=== PATIENT | female | born 1955 | race Hispanic/Latino ===

== ENCOUNTER 2017-09-01 12:04 | Emergency (ER) | payer MEDICAID ==
[2017-09-01] MEDS ORDERED: DIPRIVAN 10 MG/ML IV ONE (12:31)
[2017-09-01] MEDS ORDERED: DILAUDID ONE (12:32)
[2017-09-01] MEDS ORDERED: XYLOCAINE MPF 2% ONE (12:32)
[2017-09-01 12:46] VITALS: BP 136/51
== END 2017-09-01 15:10 | disposition left against medical advice (07) ==
LOC: ED 12:04
DX: J11.1 Influenza due to unidentified influenza virus with other respiratory manifestations (principal); Z53.21 Procedure and treatment not carried out due to patient leaving prior to being seen by health care provider
CPT/HCPCS: 82962; J1170; J2704

== ENCOUNTER 2017-09-09 17:25 | Inpatient (IN) | payer MEDICAID ==
[2017-09-09 19:04] LABS: Basophils % (Auto) 0.1 % (0.0-1.8); Hemoglobin 13.6 gm/dl (10.1-14.3); Lymphocytes # (Auto) 0.8 K/mm3 (1.2-5.4); Lymphocytes % (Auto) 5.1 % (13.4-35.0); Mean Corpuscular HGB Conc 33 % (30-34); Mean Corpuscular Hemoglobin 29 pg (28-32); Mean Corpuscular Volume 88 fl (79-97); Monocytes # (Auto) 1.3 K/mm3 (0.0-0.8); Monocytes % (Auto) 8.5 % (0.0-7.3); Platelet Count 311 K/mm3 (140-440); Red Blood Count 4.67 M/mm3 (3.65-5.03); Red Cell Distribution Width 14.3 % (13.2-15.2)
[2017-09-09 19:16] LABS: BUN/Creatinine Ratio 27; Blood Urea Nitrogen 32 mg/dL (7-17); Calcium 8.7 mg/dL (8.4-10.2); Hemolysis Index 8
--- NOTE | 2017-09-09 19:45 | XRay Report ---
FINAL REPORT EXAM: XR CHEST ROUTINE 2V HISTORY: Shortness of breath TECHNIQUE: PA and lateral views of the chest PRIORS: None. FINDINGS: Lines, tubes, and devices: N/A Lungs and pleura: Trachea is normal in position. 2 vague adjacent 1 cm nodular densities in the left base are noted between the posterior 9th and 10th ribs. CT is recommended. Otherwise, lungs are clear of infiltrate, pleural effusion, vascular congestion, or pneumothorax. Cardiomediastinal silhouette: Cardiac and mediastinal silhouettes are unremarkable. Other: Bony structures are intact. IMPRESSION: No acute cardiopulmonary process seen. Nodular densities in the left base. CT is recommended.
[2017-09-09] MEDS ORDERED: XOPENEX IH ONE (20:53)
[2017-09-09] MEDS ORDERED: ATROVENT IH ONE (20:53)
--- NOTE | 2017-09-09 20:58 | Emergency Department Report ---
ED Shortness of Breath HPI - General Chief Complaint: Dyspnea/Respdistress Stated Complaint: FLU LIKE SYMPTOMS Time Seen by Provider: 09/09/17 20:46 Source: patient, EMS Mode of arrival: Ambulatory Limitations: No Limitations - History of Present Illness Initial Comments: Patient is 62 years old female history of asthma, congestive heart failure, diabetes and arthritis presented to the ER with 2 weeks history of cough, productive with greenish sputum, shortness of breath and low oxygen saturation. Patient denied any nausea or vomiting or diarrhea. No chest pain. Patient denied any fever recently. MD Complaint: shortness of breath, cough -: week(s) Severity: moderate - Related Data Home Medications Medication Instructions Recorded Confirmed Last Taken Escitalopram Oxalate [Lexapro] 20 mg PO QDAY 07/21/13 03/23/15 Unknown Furosemide [Lasix] 40 mg PO DAILY 07/21/13 03/23/15 Unknown Gabapentin [Neurontin] 400 mg PO Q8H 07/21/13 03/23/15 Unknown Insulin Aspart [NovoLOG 100 50 units SQ TID 07/21/13 03/23/15 Unknown UNITS/ML VIAL] Levothyroxine [Synthroid] 125 mcg PO QAM 07/21/13 03/23/15 Unknown Lisinopril [Zestril TAB] 10 mg PO QDAY 07/21/13 03/23/15 Unknown Loratadine [Claritin] 10 mg PO DAILY 07/21/13 03/23/15 Unknown Metoprolol [Lopressor TAB] 75 mg PO DAILY 07/21/13 03/23/15 Unknown metFORMIN [Glucophage] 500 mg PO BID 07/21/13 03/23/15 Unknown Latanoprost 0.005% [Xalatan 0.005%] 1 drop OU QHS 07/22/13 03/23/15 07/20/13 23: 00 1 drop each eye Previous Rx's Medication Instructions Recorded Last Taken Type Insulin Glargine,Hum.rec.anlog 60 units SQ HS #10 ml 07/26/13 Unknown Rx [Lantus Solostar] Allergies Allergy/AdvReac Type Severity Reaction Status Date / Time imipramine HCl Allergy Unknown Verified 09/01/17 12:43 [From Tofranil] Penicillins Allergy Vomiting Verified 09/01/17 12:43 ED Review of Systems ROS: Stated complaint: FLU LIKE SYMPTOMS Other details as noted in HPI Comment: All other systems reviewed and negative Constitutional: denies: chills, fever Respiratory: cough, shortness of breath, SOB with exertion, wheezing Gastrointestinal: denies: abdominal pain, nausea, vomiting, diarrhea Neurological: denies: headache, weakness, numbness, paresthesias ED Past Medical Hx - Past Medical History Previous Medical History?: Yes Hx Hypertension: Yes Hx Congestive Heart Failure: Yes Hx Diabetes: Yes Hx GERD: Yes Hx Renal Disease: Yes Hx Arthritis: Yes Hx Asthma: Yes Hx COPD: No Hx HIV: No Additional medical history: neuropathy MRSA. high cholesterol. fibromyalgia. glaucoma. thyroid - Surgical History Past Surgical History?: Yes Additional Surgical History: parotid gland removed - Social History Smoking Status: Never Smoker Substance Use Type: Prescribed - Medications Home Medications: Home Medications Medication Instructions Recorded Confirmed Last Taken Type Escitalopram Oxalate [Lexapro] 20 mg PO QDAY 07/21/13 03/23/15 Unknown History Furosemide [Lasix] 40 mg PO DAILY 07/21/13 03/23/15 Unknown History Gabapentin [Neurontin] 400 mg PO Q8H 07/21/13 03/23/15 Unknown History Insulin Aspart [NovoLOG 100 50 units SQ TID 07/21/13 03/23/15 Unknown History UNITS/ML VIAL] Levothyroxine [Synthroid] 125 mcg PO QAM 07/21/13 03/23/15 Unknown History Lisinopril [Zestril TAB] 10 mg PO QDAY 07/21/13 03/23/15 Unknown History Loratadine [Claritin] 10 mg PO DAILY 07/21/13 03/23/15 Unknown History Metoprolol [Lopressor TAB] 75 mg PO DAILY 07/21/13 03/23/15 Unknown History metFORMIN [Glucophage] 500 mg PO BID 07/21/13 03/23/15 Unknown History Latanoprost 0.005% [Xalatan 0.005%] 1 drop OU QHS 07/22/13 03/23/15 07/20/13 23: 00 History 1 drop each eye Insulin Glargine,Hum.rec.anlog 60 units SQ HS #10 ml 07/26/13 03/23/15 Unknown Rx [Lantus Solostar] ED Physical Exam - General Limitations: No Limitations General appearance: alert, in distress (respiratory distress ) - Head Head exam: Present: atraumatic, normocephalic, normal inspection - Eye Eye exam: Present: normal appearance, PERRL - ENT ENT exam: Present: normal exam, normal orophraynx, mucous membranes moist - Neck Neck exam: Present: normal inspection, full ROM. Absent: tenderness, meningismus, lymphadenopathy - Respiratory Respiratory exam: Present: respiratory distress, wheezes, rhonchi, accessory muscle use, decreased breath sounds, prolonged expiratory. Absent: chest wall tenderness - Cardiovascular Cardiovascular Exam: Present: tachycardia - GI/Abdominal GI/Abdominal exam: Present: soft, normal bowel sounds. Absent: distended, tenderness, guarding, rebound, rigid, organomegaly, mass, bruit, pulsatile mass , hernia - Extremities Exam Extremities exam: Present: normal inspection, full ROM, normal capillary refill. Absent: pedal edema, calf tenderness - Back Exam Back exam: Present: normal inspection, full ROM. Absent: CVA tenderness (R), CVA tenderness (L), muscle spasm, paraspinal tenderness, vertebral tenderness - Neurological Exam Neurological exam: Present: alert, oriented X3, CN II-XII intact, normal gait - Skin Skin exam: Present: warm, intact, normal color. Absent: cyanosis ED Course Vital Signs 09/09/17 09/09/17 09/09/17 17:52 20:29 20:30 Temperature 98 F Pulse Rate 100 H Pulse Rate [ Anterior Bilateral Throughout] Respiratory 20 Rate Respiratory Rate [Anterior Bilateral Throughout] Blood Pressure 165/67 112/66 112/66 O2 Sat by Pulse 91 Oximetry 09/09/17 09/09/17 09/09/17 20:44 21:49 22:04 Temperature Pulse Rate Pulse Rate [ 104 H 114 H Anterior Bilateral Throughout] Respiratory 16 Rate Respiratory 15 20 Rate [Anterior Bilateral Throughout] Blood Pressure O2 Sat by Pulse 98 Oximetry 09/09/17 22:19 Temperature 98.4 F Pulse Rate Pulse Rate [ Anterior Bilateral Throughout] Respiratory Rate Respiratory Rate [Anterior Bilateral Throughout] Blood Pressure O2 Sat by Pulse Oximetry ED Medical Decision Making - Lab Data Result diagrams: 09/09/17 18:34 09/09/17 18:34 - EKG Data -: EKG Interpreted by Md EKG shows normal: sinus rhythm Rate: tachycardia - EKG Data Interpretation: no acute changes - Radiology Data Radiology results: report reviewed Referring Physician: ED DOC Patient Name: MIRTA JIMENEZ Date of : 1955 Sex: Female Report Date: 2017-09-09 Report Status: Finalized Findings [facility] [address] [place] [address] XRay Report Signed Patient: MIRTA JIMENEZ MR#: [id number] : 1955 Acct:[id number] Age/Sex: 62 / F ADM Date: 09/09/17 Loc: ED Attending Dr: Ordering Physician: PAOLA HARDING MD Date of Service: 09/09/17 Procedure(s): XR chest routine 2V Accession Number(s): [id number] cc: PAOLA HARDING MD Fluoro Time In Minutes: FINAL REPORT EXAM: XR CHEST ROUTINE 2V HISTORY: Shortness of breath TECHNIQUE: PA and lateral views of the chest PRIORS: None. FINDINGS: Lines, tubes, and devices: N/A Lungs and pleura: Trachea is normal in position. 2 vague adjacent 1 cm nodular densities in the left base are noted between the posterior 9th and 10th ribs. CT is recommended. Otherwise, lungs are clear of infiltrate, pleural effusion, vascular congestion, or pneumothorax. Cardiomediastinal silhouette: Cardiac and mediastinal silhouettes are unremarkable. Other: Bony structures are intact. IMPRESSION: No acute cardiopulmonary process seen. Nodular densities in the left base. CT is recommended. Transcribed By: [facility] Dictated By: ADRIEN DC MD Electronically Authenticated By: ADRIEN DC MD Signed Date/Time: 09/09/17 154 DD/ 1543 TD/TT: 09/09/17 154 - Medical Decision Making Discussed with Dr. Fe Cazares, I presented the patient to her, she agreed to admit the patient to our service.. Critical Care Time: Yes Critical care time in (mins) excluding proc time.: 30 Critical care attestation.: If time is entered above; I have spent that time in minutes in the direct care of this critically ill patient, excluding procedure time. ED Disposition Clinical Impression: CHF (congestive heart failure), Acute and chronic respiratory failure with hypoxia, Hyperglycemia due to type 2 diabetes mellitus Disposition: OP ADMIT IP TO THIS HOSP Is pt being admited?: Yes Condition: Stable Instructions: Diabetes Mellitus Type 2 in Adults (ED) Referrals: TAPAN GUZMAN MD [Primary Care Provider] - 3-5 Days
[2017-09-09] MEDS ORDERED: NACL 0.9% 1000 ML 1,000 ML IV ONE (22:28)
[2017-09-09] MEDS ORDERED: DULCOLAX PR PRN (23:20)
[2017-09-09] MEDS ORDERED: ZOFRAN IV PRN (23:20)
[2017-09-09] MEDS ORDERED: D50W (25GM) Syringe IV PRN (23:20)
[2017-09-09] MEDS ORDERED: TYLENOL PO PRN (23:20)
[2017-09-09] MEDS ORDERED: MILK OF MAGNESIA PO PRN (23:20)
--- NOTE | 2017-09-09 23:23 | History and Physical Report ---
History of Present Illness Date of examination: 09/09/17 History of present illness: 59-year-old woman with multiple medical problems including hypertension, diabetes, fibromyalgia, hyperlipidemia, hypothyroidism, CHF, depression , asthma comes to the emergency room with complaints of shortness of breath, cough productive of thick cerrato sputum, subjective fever and chills. These symptoms have been ongoing over the last 2 weeks but got worse today Review Of Systems: Constitutional: no weight loss Ears, eyes, nose, mouth and throat: no nasal congestion, no nasal discharge, no sinus pressure, blurry vision, diplopia Neck: No neck pain or rigidity. Cardiovascular: No chest pain, palpitations Respiratory: +shortness of breath, cough Gastrointestinal: No abdominal pain, hematochezia Genitourinary : no dysuria, frequency , hematuria Musculoskeletal: no muscle ache Integumentary: no rash, no pruritis Neurological: no parathesias, focal weakness Endocrine: no cold or heat intolerance, no polyuria or polydipsia Hematologic/Lymphatic: no easy bruising, no easy bleeding, no gland swelling Allergic/Immunologic: no urticaria, no angioedema. PAST SURGICAL HISTORY: Ex-lap, parotid gland surgery SOCIAL HISTORY: Denies alcohol, tobacco, drugs FAMILY HISTORY: Hypertension Medications and Allergies Allergies Allergy/AdvReac Type Severity Reaction Status Date / Time imipramine HCl Allergy Unknown Verified 09/01/17 12:43 [From Tofranil] Penicillins Allergy Vomiting Verified 09/01/17 12:43 Home Medications Medication Instructions Recorded Confirmed Last Taken Type Escitalopram Oxalate [Lexapro] 20 mg PO QDAY 07/21/13 03/23/15 Unknown History Furosemide [Lasix] 40 mg PO DAILY 07/21/13 03/23/15 Unknown History Gabapentin [Neurontin] 400 mg PO Q8H 07/21/13 03/23/15 Unknown History Insulin Aspart [NovoLOG 100 50 units SQ TID 07/21/13 03/23/15 Unknown History UNITS/ML VIAL] Levothyroxine [Synthroid] 125 mcg PO QAM 07/21/13 03/23/15 Unknown History Lisinopril [Zestril TAB] 10 mg PO QDAY 07/21/13 03/23/15 Unknown History Loratadine [Claritin] 10 mg PO DAILY 07/21/13 03/23/15 Unknown History Metoprolol [Lopressor TAB] 75 mg PO DAILY 07/21/13 03/23/15 Unknown History metFORMIN [Glucophage] 500 mg PO BID 07/21/13 03/23/15 Unknown History Latanoprost 0.005% [Xalatan 0.005%] 1 drop OU QHS 07/22/13 03/23/15 07/20/13 23: 00 History 1 drop each eye Insulin Glargine,Hum.rec.anlog 60 units SQ HS #10 ml 07/26/13 03/23/15 Unknown Rx [Lantus Solostar] Active Meds: Active Medications Sodium Chloride (Nacl 0.9% 1000 Ml) 1,000 mls @ 999 mls/hr IV BOLUS ONE Stop: 09/09/17 23:28 Exam - Physical Exam Narrative exam: General Apperance: The patient sitting in bed no acute distress HEENT: Normocephalic, atraumatic. Pupils equally round and reactive to light, extraocular movement intact, and no sclericterus or JVD or thyromegaly or nodule. Neck supple, no carotid bruit, mucous membranes dry, no exudate or erythema Heart: S1-S2, regular is rhythm Lungs: Wheezes bilaterally, breathing comfortable Abdomen: Positive bowel sounds, soft, nontender, nondistended, no organomegaly Extremities: No edema cyanosis clubbing Skin: no rash, nodule, warm and dry Neuro: Cranial nerves II through XII intact, speech is fluent, motor intact , sensation intact - Constitutional Vitals: Temp Pulse Resp BP Pulse Ox 98.4 F 114 H 20 112/66 98 09/09/17 22:19 09/09/17 22:04 09/09/17 22:04 09/09/17 20:30 09/09/17 20:44 Results - Labs CBC & Chem 7: 09/09/17 18:34 09/09/17 18:34 Labs: Abnormal lab results 09/09/17 09/09/17 09/09/17 Range/Units 18:34 18:34 21:18 WBC 15.9 H (4.5-11.0) K/mm3 Lymph % (Auto) 5.1 L (13.4-35.0) % [place] % (Auto) 8.5 H (0.0-7.3) % Lymph # 0.8 L (1.2-5.4) K/mm3 [place] # 1.3 H (0.0-0.8) K/mm3 Seg Neutrophils % 86.3 H (40.0-70.0) % Seg Neutrophils # 13.7 H (1.8-7.7) K/mm3 Sodium 130 L (137-145) mmol/L Chloride 85.2 L (98-107) mmol/L Carbon Dioxide 21 L (22-30) mmol/L BUN 32 H (7-17) mg/dL Glucose 474 H (65-100) mg/dL POC Glucose (70-105) Lactic Acid 2.30 H* (0.7-2.0) mmol/L 09/09/17 Range/Units 21:38 WBC (4.5-11.0) K/mm3 Lymph % (Auto) (13.4-35.0) % [place] % (Auto) (0.0-7.3) % Lymph # (1.2-5.4) K/mm3 [place] # (0.0-0.8) K/mm3 Seg Neutrophils % (40.0-70.0) % Seg Neutrophils # (1.8-7.7) K/mm3 Sodium (137-145) mmol/L Chloride (98-107) mmol/L Carbon Dioxide (22-30) mmol/L BUN (7-17) mg/dL Glucose (65-100) mg/dL POC Glucose > 500 H (70-105) Lactic Acid (0.7-2.0) mmol/L - Imaging and Cardiology EKG: image reviewed Chest x-ray: image reviewed Assessment and Plan Assessment Asthma exacerbation with acute bronchitis Lung nodules Diabetes type 2 uncontrolled Hypertension Hyperlipidemia Hypothyroidism Fibromyalgia CHF, stable Depression Plan Admit to medicine Start high-dose steroids, neb treatment, IV antibiotic obtain CAT scan of the chest Check fingersticks initiate insulin sliding scale Dvt prophylaxis
[2017-09-10] MEDS ORDERED: APRESOLINE IV PRN (00:29)
--- NOTE | 2017-09-10 00:36 | Cat Scan Report ---
FINAL REPORT EXAM: CT CHEST WO CON HISTORY: ab cxr SOB COUGH TECHNIQUE: Routine axial imaging was obtained of the thorax without IV contrast with sagittal and coronal reconstructions. Correlation is made to the chest x-ray of 09/09/2017. FINDINGS: The lungs reveal nodular infiltrates in both lower lobes, left side worse than right side. There additional peripheral infiltrates noted also in the right middle lobe and right upper lobe. There is diffuse interstitial prominence in both lungs. Pleural fluid is not seen. The heart size is normal. The thoracic aorta is normal in caliber. There is no evidence of pathologically enlarged lymph nodes in the mediastinum or jeremiah. In the upper abdomen the adrenal glands appear normal. At the thoracic inlet the thyroid gland is unremarkable. The skeletal structures reveal multilevel disc degeneration in the thoracic spine IMPRESSION: Patchy bilateral nodular infiltrates in both lower lobes as described with additional peripheral traits in the right middle lobe and right upper lobe compatible with pneumonia. Diffuse interstitial prominence in both lungs. How much of this is related to chronic changes versus the possibility of mild interstitial edema is uncertain.
[2017-09-10] MEDS ORDERED: LEVEMIR SUB-Q SCH (01:00)
[2017-09-10] MEDS: DUONEB *Not for PRN Use IH SCH ×4 (02:23→20:17)
[2017-09-10] MEDS: LEVAQUIN 750MG/150ML 750 MG/150 ML BAG IV SCH ×2 (03:18→11:05)
[2017-09-10] MEDS: NEURONTIN PO SCH ×3 (03:23→22:13)
[2017-09-10 04:43] LABS: Basophils % (Auto) 0.3 % (0.0-1.8); Hematocrit 35.3 % (30.3-42.9); Hemoglobin 11.7 gm/dl (10.1-14.3); Lymphocytes # (Auto) 0.9 K/mm3 (1.2-5.4); Lymphocytes % (Auto) 7.3 % (13.4-35.0); Mean Corpuscular HGB Conc 33 % (30-34); Mean Corpuscular Hemoglobin 29 pg (28-32); Mean Corpuscular Volume 87 fl (79-97); Monocytes # (Auto) 1.7 K/mm3 (0.0-0.8); Monocytes % (Auto) 13.3 % (0.0-7.3); Platelet Count 290 K/mm3 (140-440); Red Blood Count 4.07 M/mm3 (3.65-5.03)
[2017-09-10 05:01] LABS: Calcium 8.7 mg/dL (8.4-10.2)
[2017-09-10] MEDS: SYNTHROID PO SCH (05:58)
[2017-09-10] MEDS: NOVOLOG SUB-Q SCH ×4 (08:35→19:29)
[2017-09-10] MEDS: LEXAPRO PO SCH (09:56)
[2017-09-10] MEDS: GLUCOPHAGE PO SCH ×2 (09:56→18:41)
[2017-09-10] MEDS: ZESTRIL PO SCH (09:58)
[2017-09-10] MEDS: LASIX PO SCH (09:58)
[2017-09-10] MEDS: LOVENOX SUB-Q SCH (09:59)
[2017-09-10] MEDS ORDERED: D50W (25GM) Syringe IV PRN (11:40)
[2017-09-10 12:21] LABS: Magnesium 2.1 mg/dL (1.7-2.3)
[2017-09-10] MEDS ORDERED: LEVEMIR SUB-Q ONE (12:35)
--- NOTE | 2017-09-10 12:45 | Consultation ---
History of Present Illness - Reason for Consult Consult date: 09/10/17 [facility] Requesting physician: AUGUST ELMUS - History of Present Illness 62 y/o female, admitted with shortness of breath, subjective fevers and chills and cough productive of sputum. Treated as asthma exacerbation, started on high dose steroids and abx therapy. 1 liters bolus given in ED appears. IMS found patient in DKA and looking to transfer to ICU. Currently no ICU beds available. Medications and Allergies Allergies Allergy/AdvReac Type Severity Reaction Status Date / Time imipramine HCl Allergy Unknown Verified 09/01/17 12:43 [From Tofranil] Penicillins Allergy Vomiting Verified 09/01/17 12:43 Home Medications Medication Instructions Recorded Confirmed Last Taken Type Escitalopram Oxalate [Lexapro] 20 mg PO QDAY MDD 20 mg 07/21/13 09/10/17 History 20 mg Furosemide [Lasix] 40 mg PO DAILY MDD 40 mg 07/21/13 09/10/17 09/08/17 History 40 mg Gabapentin [Neurontin] 800 mg PO TID MDD 800 mg 07/21/13 09/10/17 09/08/17 History 800 mg Levothyroxine [Synthroid] 112 mcg PO QAM MDD 112 mcg 07/21/13 09/10/17 09/08/17 History 112 mcg Lisinopril [Zestril TAB] 10 mg PO QDAY MDD 10 mg 07/21/13 09/10/17 09/08/17 History 10 mg Loratadine [Claritin] 10 mg PO DAILY MDD 10 mg 07/21/13 09/10/17 09/08/17 History 10 mg Metoprolol [Lopressor TAB] 25 mg PO QDAY MDD 25 07/21/13 09/10/17 09/08/17 History 25 mg metFORMIN [Glucophage] 500 mg PO DAILY MDD 500 mg 07/21/13 09/10/17 09/08/17 History 500 mg Latanoprost 0.005% [Xalatan 0.005%] 1 drop OU QHS MDD 1 drop 07/22/13 09/10/17 09/08/17 History 1 drop AtorvaSTATin [Lipitor] 40 mg PO QHS MDD 40 mg 09/10/17 09/10/17 09/08/17 History 40 mg Bupropion HCl [Bupropion HCl Sr] 150 mg PO DAILY MDD 150 mg 09/10/17 09/10/17 History 150 mg Isosorbide Mononitrate 30 mg PO DAILY MDD 30 mg 09/10/17 09/10/17 09/08/17 History 30 mg traMADol [Ultram] 50 mg PO PRN PRN MDD 50 mg 09/10/17 09/10/17 09/08/17 History 50 mg Active Meds: Active Medications Acetaminophen (Tylenol) 650 mg PO Q4H PRN PRN Reason: Pain MILD(1-3)/Fever >100.5/ANN Albuterol/Ipratropium (Duoneb *Not For Prn Use*) 1 ampul IH Q6HRT [facility] Last Admin: 09/10/17 07:27 Dose: 1 ampul Bisacodyl (Dulcolax) 10 mg MD QDAY PRN PRN Reason: Constipation unrelieved by MOM Dextrose (D50w (25gm) Syringe) 0 ml IV PRN PRN PRN Reason: Hypoglycemia Enoxaparin Sodium (Lovenox) 40 mg SUB-Q QDAY [facility] Last Admin: 09/10/17 09:59 Dose: 40 mg Escitalopram Oxalate (Lexapro) 20 mg PO QDAY [facility] Last Admin: 09/10/17 09:56 Dose: 20 mg Furosemide (Lasix) 40 mg PO DAILY [facility] Last Admin: 09/10/17 09:58 Dose: 40 mg Gabapentin (Neurontin) 400 mg PO Q8HR [facility] Last Admin: 09/10/17 03:23 Dose: 400 mg Hydralazine HCl (Apresoline) 5 mg IV Q6H PRN PRN Reason: Hypertension Levofloxacin/Dextrose (Levaquin 750mg/150ml) 750 mg in 150 mls @ 100 mls/hr IV Q24HR [facility] PRN Reason: Protocol Last Admin: 09/10/17 11:05 Dose: 100 mls/hr Insulin Human Regular 100 (units/ Sodium Chloride) 100 mls @ 1 mls/hr IV TITR RUBA; 1 UNITS/HR PRN Reason: Protocol Sodium Chloride (Nacl 0.9% 1000 Ml) 1,000 mls @ 250 mls/hr IV DIRECT RUBA Levothyroxine Sodium (Synthroid) 125 mcg PO QAM@0600 [facility] Last Admin: 09/10/17 05:58 Dose: 125 mcg Lisinopril (Zestril) 10 mg PO QDAY [facility] Last Admin: 09/10/17 09:58 Dose: 10 mg Magnesium Hydroxide (Milk Of Magnesia) 30 ml PO Q4H PRN PRN Reason: Constipation Metformin HCl (Glucophage) 500 mg PO BIDDIAB [facility] Last Admin: 09/10/17 09:56 Dose: 500 mg Methylprednisolone Sodium Succinate (Solu-Medrol) 40 mg IV Q8HR [facility] Metoprolol Tartrate (Lopressor) 75 mg PO DAILY [facility] Ondansetron HCl (Zofran) 4 mg IV Q8H PRN PRN Reason: N/V unrelieved by Reglan Exam - Constitutional Vitals: Temp Pulse Resp BP Pulse Ox 97.5 F L 98 H 18 158/57 97 09/10/17 07:58 09/10/17 09:58 09/10/17 07:58 09/10/17 09:58 09/10/17 07:58 Results - Labs CBC & Chem 7: 09/10/17 03:53 09/10/17 11:42 Labs: Abnormal lab results 09/09/17 09/09/17 09/09/17 Range/Units 18:34 18:34 21:18 WBC 15.9 H (4.5-11.0) K/mm3 Lymph % (Auto) 5.1 L (13.4-35.0) % [place] % (Auto) 8.5 H (0.0-7.3) % Lymph # 0.8 L (1.2-5.4) K/mm3 [place] # 1.3 H (0.0-0.8) K/mm3 Seg Neutrophils % 86.3 H (40.0-70.0) % Seg Neutrophils # 13.7 H (1.8-7.7) K/mm3 Sodium 130 L (137-145) mmol/L Chloride 85.2 L (98-107) mmol/L Carbon Dioxide 21 L (22-30) mmol/L BUN 32 H (7-17) mg/dL Glucose 474 H (65-100) mg/dL POC Glucose (70-105) Lactic Acid 2.30 H* (0.7-2.0) mmol/L 09/09/17 09/10/17 09/10/17 Range/Units 21:38 03:53 03:53 WBC 12.7 H (4.5-11.0) K/mm3 Lymph % (Auto) 7.3 L (13.4-35.0) % [place] % (Auto) 13.3 H (0.0-7.3) % Lymph # 0.9 L (1.2-5.4) K/mm3 [place] # 1.7 H (0.0-0.8) K/mm3 Seg Neutrophils % 79.1 H (40.0-70.0) % Seg Neutrophils # 10.1 H (1.8-7.7) K/mm3 Sodium 129 L (137-145) mmol/L Chloride 85.5 L (98-107) mmol/L Carbon Dioxide 18 L (22-30) mmol/L BUN 35 H (7-17) mg/dL Glucose 479 H (65-100) mg/dL POC Glucose > 500 H (70-105) Lactic Acid (0.7-2.0) mmol/L 09/10/17 09/10/17 09/10/17 Range/Units 06:29 08:33 11:42 WBC (4.5-11.0) K/mm3 Lymph % (Auto) (13.4-35.0) % [place] % (Auto) (0.0-7.3) % Lymph # (1.2-5.4) K/mm3 [place] # (0.0-0.8) K/mm3 Seg Neutrophils % (40.0-70.0) % Seg Neutrophils # (1.8-7.7) K/mm3 Sodium 127 L (137-145) mmol/L Chloride 86.6 L (98-107) mmol/L Carbon Dioxide 21 L (22-30) mmol/L BUN 33 H (7-17) mg/dL Glucose (65-100) mg/dL POC Glucose 367 H (70-105) Lactic Acid 2.50 H* (0.7-2.0) mmol/L Assessment and Plan 62 y/o female with DKA 1. No current ICU beds so cannot start insulin drip. Will give liter of fluid and then reassess breathing status. 2. Levemir 10 units sub-q x1 now. 3. Continue high dose sliding scale 4. Will check q2 hour FSBS as this is the most the can do on the floor 5. Will check chemistry q6 hours 6. Situation is not ideal but we will have to make due until a bed is available. 7. Suggest Flu swab
[2017-09-10] MEDS: NACL 0.9% 1000 ML 1,000 ML IV SCH (12:58)
[2017-09-10 12:59] LABS: Calcium 8.1 mg/dL (8.4-10.2)
[2017-09-10 14:27] LABS: Calcium 8.3 mg/dL (8.4-10.2)
[2017-09-10] MEDS: LOPRESSOR PO SCH (15:00)
--- NOTE | 2017-09-10 15:45 | Progress Note ---
Assessment and Plan Assessment and plan: Acute asthma exacerbation - Patient is on IV Solu Medrol, nebulizer, oxygen support with Ventimask, IV antibiotics DKA - Blood sugar greater than 500, anion gap 30, patient shouldn't be admitted to the floor - I put transfer order to the ICU, but patient is still in the floor because there is no ICU bed - Patient was given IV fluid bolus, sliding scale insulin, Levemir 10 units, special education bus driver consulted - This is not the optimal way to manage the patient, but that is what I can do until i get ICU bed Hypertension Depression CHF - Continue appropriate home medications DVT prophylaxis - Lovenox Disposition - Transfer to ICU for management of DKA. History Interval history: Patient was seen and developed this morning, she is admitted for asthma exacerbation and DKA. Patient was admitted to the floor last night while she was in DKA. Patient should have been admitted to the ICU. Hospitalist Physical - Physical exam Narrative exam: Patient is in respiratory distress, patient is Venturimask. The patient appeared well nourished and normally developed. Vital signs as documented. Head exam is unremarkable. No scleral icterus . Neck is without jugular venous distension, thyromegaly, or carotid bruits. Lungs are clear to auscultation. Cardiac exam reveals regular rate and Rhythm. First and second heart sounds normal. No murmurs, rubs or gallops. Abdominal exam reveals normal bowel sounds, no masses, no organomegaly and no aortic enlargement. Extremities are nonedematous and both femoral and pedal pulses are normal. FLIGHT DIRECTOR: Alert and oriented 3. No focal weakness. - Constitutional Vitals: Temp Pulse Resp BP Pulse Ox 97.5 F L 102 H 20 158/57 97 09/10/17 07:58 09/10/17 13:13 09/10/17 13:13 09/10/17 09:58 09/10/17 07:58 Results - Labs CBC & Chem 7: 09/10/17 03:53 09/10/17 13:36 Labs: Laboratory Last Values WBC 12.7 K/mm3 (4.5-11.0) H 09/10/17 03:53 RBC 4.07 M/mm3 (3.65-5.03) 09/10/17 03:53 Hgb 11.7 gm/dl (10.1-14.3) 09/10/17 03:53 Hct 35.3 % (30.3-42.9) 09/10/17 03:53 MCV 87 fl (79-97) 09/10/17 03:53 MCH 29 pg (28-32) 09/10/17 03:53 MCHC 33 % (30-34) 09/10/17 03:53 RDW 14.0 % (13.2-15.2) 09/10/17 03:53 Plt Count 290 K/mm3 (140-440) 09/10/17 03:53 Lymph % (Auto) 7.3 % (13.4-35.0) L 09/10/17 03:53 [place] % (Auto) 13.3 % (0.0-7.3) H 09/10/17 03:53 Eos % (Auto) 0.0 % (0.0-4.3) 09/10/17 03:53 Baso % (Auto) 0.3 % (0.0-1.8) 09/10/17 03:53 Lymph # 0.9 K/mm3 (1.2-5.4) L 09/10/17 03:53 [place] # 1.7 K/mm3 (0.0-0.8) H 09/10/17 03:53 Eos # 0.0 K/mm3 (0.0-0.4) 09/10/17 03:53 Baso # 0.0 K/mm3 (0.0-0.1) 09/10/17 03:53 Seg Neutrophils % 79.1 % (40.0-70.0) H 09/10/17 03:53 Seg Neutrophils # 10.1 K/mm3 (1.8-7.7) H 09/10/17 03:53 Sodium 127 mmol/L (137-145) L 09/10/17 13:36 Potassium 4.6 mmol/L (3.6-5.0) 09/10/17 13:36 Chloride 88.2 mmol/L (98-107) L 09/10/17 13:36 Carbon Dioxide 18 mmol/L (22-30) L 09/10/17 13:36 Anion Gap 25 mmol/L 09/10/17 13:36 BUN 35 mg/dL (7-17) H 09/10/17 13:36 Creatinine 1.1 mg/dL (0.7-1.2) 09/10/17 13:36 Estimated GFR 51 ml/min 09/10/17 13:36 BUN/Creatinine Ratio 32 % 09/10/17 13:36 Glucose 629 mg/dL (65-100) H* 09/10/17 13:36 POC Glucose > 500 (70-105) H 09/10/17 14:17 Lactic Acid 2.50 mmol/L (0.7-2.0) H* 09/10/17 08:33 Calcium 8.3 mg/dL (8.4-10.2) L 09/10/17 13:36 Phosphorus 3.10 mg/dL (2.5-4.5) 09/10/17 11:42 Magnesium 2.10 mg/dL (1.7-2.3) 09/10/17 11:42 Troponin T < 0.010 ng/mL (0.00-0.029) 09/09/17 18:34 NT-Pro-B Natriuret Pep 336.3 pg/mL (0-900) 09/09/17 21:18
[2017-09-10 17:02] LABS: Calcium 8.5 mg/dL (8.4-10.2)
[2017-09-10 20:40] LABS: Calcium 8.8 mg/dL (8.4-10.2)
[2017-09-10] MEDS: NovoLIN R 100 UNITS in NACL 0.9% 99 ML IV SCH ×2 (22:06→23:34)
[2017-09-11] MEDS: DUONEB *Not for PRN Use IH SCH ×4 (02:26→20:29)
[2017-09-11] MEDS: D5W/0.45% NACL/KCL 20 MEQ 20 MEQ/1,000 ML BAG IV SCH ×3 (03:20→23:11)
[2017-09-11] MEDS: NEURONTIN PO SCH ×3 (05:57→21:42)
[2017-09-11] MEDS: SYNTHROID PO SCH (05:57)
[2017-09-11 06:15] LABS: BUN/Creatinine Ratio 36; Blood Urea Nitrogen 32 mg/dL (7-17); Calcium 8.6 mg/dL (8.4-10.2); Hemolysis Index 3
--- NOTE | 2017-09-11 08:10 | Progress Note ---
Assessment and Plan 62 y/o female with DKA 1. Calculate long acting insulin dosage and administer, then stop long acting insulin 2. Feed patient 3. If tolerates PO, then can stop the D5 Drip 4. Should be stable to transfer to the floor CCT 31 minutes Subjective Date of service: 09/11/17 Interval history: Finally made it to ICU. Anion Gap has now closed. Objective - Constitutional Vitals: Vital Signs - 12hr 09/10/17 09/10/17 09/10/17 20:10 20:12 20:39 Temperature 98.2 F Pulse Rate 77 Pulse Rate [ 77 Anterior Bilateral Throughout] Pulse Rate [ None] Respiratory 20 Rate Respiratory 20 Rate [Anterior Bilateral Throughout] Respiratory Rate [ Generalized] Blood Pressure 131/49 O2 Sat by Pulse 99 97 Oximetry 09/10/17 09/10/17 09/10/17 21:00 22:00 23:00 Temperature Pulse Rate Pulse Rate [ Anterior Bilateral Throughout] Pulse Rate [ 70 70 None] Respiratory 18 20 20 Rate Respiratory Rate [Anterior Bilateral Throughout] Respiratory 18 Rate [ Generalized] Blood Pressure 140/65 140/67 142/59 O2 Sat by Pulse 97 97 97 Oximetry 09/11/17 09/11/17 09/11/17 00:00 04:00 08:00 Temperature 98.6 F 98.3 F Pulse Rate Pulse Rate [ 72 Anterior Bilateral Throughout] Pulse Rate [ 70 None] Respiratory 20 Rate Respiratory 16 Rate [Anterior Bilateral Throughout] Respiratory Rate [ Generalized] Blood Pressure 138/57 O2 Sat by Pulse 97 Oximetry 09/11/17 08:02 Temperature Pulse Rate Pulse Rate [ 71 Anterior Bilateral Throughout] Pulse Rate [ None] Respiratory Rate Respiratory 18 Rate [Anterior Bilateral Throughout] Respiratory Rate [ Generalized] Blood Pressure O2 Sat by Pulse 98 Oximetry - Labs CBC & Chem 7: 09/10/17 03:53 09/11/17 05:13 Labs: Abnormal lab results 09/10/17 09/10/17 09/10/17 Range/Units 08:33 11:42 12:37 Sodium 127 L (137-145) mmol/L Chloride 86.6 L (98-107) mmol/L Carbon Dioxide 21 L (22-30) mmol/L BUN 33 H (7-17) mg/dL Glucose 588 H* (65-100) mg/dL POC Glucose 496 H (70-105) Lactic Acid 2.50 H* (0.7-2.0) mmol/L Calcium 8.1 L (8.4-10.2) mg/dL 09/10/17 09/10/17 09/10/17 Range/Units 13:36 14:17 16:15 Sodium 127 L 129 L (137-145) mmol/L Chloride 88.2 L 89.2 L (98-107) mmol/L Carbon Dioxide 18 L 20 L (22-30) mmol/L BUN 35 H 35 H (7-17) mg/dL Glucose 629 H* 637 H* (65-100) mg/dL POC Glucose > 500 H (70-105) Lactic Acid (0.7-2.0) mmol/L Calcium 8.3 L (8.4-10.2) mg/dL 09/10/17 09/10/17 09/10/17 Range/Units 16:16 19:22 20:02 Sodium 132 L (137-145) mmol/L Chloride 93.4 L (98-107) mmol/L Carbon Dioxide (22-30) mmol/L BUN 35 H (7-17) mg/dL Glucose 500 H (65-100) mg/dL POC Glucose > 500 H 455 H (70-105) Lactic Acid (0.7-2.0) mmol/L Calcium (8.4-10.2) mg/dL 09/10/17 09/10/17 09/10/17 Range/Units 20:44 21:33 23:10 Sodium (137-145) mmol/L Chloride (98-107) mmol/L Carbon Dioxide (22-30) mmol/L BUN (7-17) mg/dL Glucose (65-100) mg/dL POC Glucose 388 H 355 H 225 H (70-105) Lactic Acid (0.7-2.0) mmol/L Calcium (8.4-10.2) mg/dL 09/11/17 09/11/17 09/11/17 Range/Units 00:10 02:00 02:43 Sodium (137-145) mmol/L Chloride (98-107) mmol/L Carbon Dioxide (22-30) mmol/L BUN (7-17) mg/dL Glucose (65-100) mg/dL POC Glucose 204 H 147 H 150 H (70-105) Lactic Acid (0.7-2.0) mmol/L Calcium (8.4-10.2) mg/dL 09/11/17 09/11/17 09/11/17 Range/Units 03:28 04:16 05:13 Sodium (137-145) mmol/L Chloride (98-107) mmol/L Carbon Dioxide (22-30) mmol/L BUN 32 H (7-17) mg/dL Glucose 248 H (65-100) mg/dL POC Glucose 194 H 204 H (70-105) Lactic Acid (0.7-2.0) mmol/L Calcium (8.4-10.2) mg/dL 09/11/17 09/11/17 09/11/17 Range/Units 05:19 06:14 07:00 Sodium (137-145) mmol/L Chloride (98-107) mmol/L Carbon Dioxide (22-30) mmol/L BUN (7-17) mg/dL Glucose (65-100) mg/dL POC Glucose 218 H 219 H 226 H (70-105) Lactic Acid (0.7-2.0) mmol/L Calcium (8.4-10.2) mg/dL 09/11/17 Range/Units 08:00 Sodium (137-145) mmol/L Chloride (98-107) mmol/L Carbon Dioxide (22-30) mmol/L BUN (7-17) mg/dL Glucose (65-100) mg/dL POC Glucose 144 H (70-105) Lactic Acid (0.7-2.0) mmol/L Calcium (8.4-10.2) mg/dL
[2017-09-11] MEDS ORDERED: NON-FORMULARY (Bupropion Hcl [Bupropion Hcl Sr] 150 MG) PO SCH (10:00)
[2017-09-11] MEDS: NOVOLOG SUB-Q SCH ×4 (11:00→22:00)
[2017-09-11] MEDS: IMDUR PO SCH (11:07)
[2017-09-11] MEDS: LOPRESSOR PO SCH (11:22)
[2017-09-11] MEDS: LASIX PO SCH (11:24)
[2017-09-11] MEDS: LOVENOX SUB-Q SCH (11:24)
[2017-09-11] MEDS: ZESTRIL PO SCH (11:24)
[2017-09-11] MEDS: LEVAQUIN PO SCH (11:24)
[2017-09-11] MEDS: LEVEMIR SUB-Q SCH (11:28)
[2017-09-11 13:05] LABS: BUN/Creatinine Ratio 36; Blood Urea Nitrogen 29 mg/dL (7-17); Calcium 8.2 mg/dL (8.4-10.2); Hemolysis Index 180
--- NOTE | 2017-09-11 13:30 | Progress Note ---
<OVIDIO MARIE - Last Filed: 09/12/17 15:13> Assessment and Plan Assessment and plan: Acute asthma exacerbation - Patient is on IV Solu Medrol, nebulizer, oxygen support with Ventimask, IV antibiotics DKA -Now resolved, pt will be transferred to med/surg floor - Blood sugar was vision greater than 500, anion gap 30, patient shouldn't be admitted to the floor - Patient was given IV fluid bolus, sliding scale insulin, Levemir 10 units, rib trim separator consulted Diabetes Mellitus Type 2 ADA diet, accu checks ACHS, SSI Hypertension Depression CHF - Continue appropriate home medications DVT prophylaxis - Lovenox Disposition - Transfer to med/surg floor History Interval history: Patient was seen and examined. Her only complaint today is that of cough. She denies chest pain, shortness of breath, nausea vomiting. Labs and nursing notes reviewed. Hospitalist Physical - Constitutional Vitals: Temp Pulse Resp BP Pulse Ox 98.3 F 75 18 157/66 98 09/11/17 04:00 09/11/17 11:22 09/11/17 08:02 09/11/17 11:22 09/11/17 08:02 General appearance: Present: no acute distress, well-nourished - EENT Eyes: Present: PERRL, EOM intact ENT: hearing intact, clear oral mucosa - Neck Neck: Present: supple, normal ROM - Respiratory Respiratory effort: normal Respiratory: bilateral: CTA - Cardiovascular Rhythm: regular Heart Sounds: Present: S1 & S2 - Extremities Extremities: no ischemia, No edema - Abdominal General gastrointestinal: soft, non-tender - Integumentary Integumentary: Present: clear, warm, dry - Psychiatric Psychiatric: appropriate mood/affect, cooperative - Neurologic Neurologic: CNII-XII intact, moves all extremities - Allied Health Allied health notes reviewed: nursing Results - Labs CBC & Chem 7: 09/10/17 03:53 09/12/17 12:05 Labs: Laboratory Last Values WBC 12.7 K/mm3 (4.5-11.0) H 09/10/17 03:53 RBC 4.07 M/mm3 (3.65-5.03) 09/10/17 03:53 Hgb 11.7 gm/dl (10.1-14.3) 09/10/17 03:53 Hct 35.3 % (30.3-42.9) 09/10/17 03:53 MCV 87 fl (79-97) 09/10/17 03:53 MCH 29 pg (28-32) 09/10/17 03:53 MCHC 33 % (30-34) 09/10/17 03:53 RDW 14.0 % (13.2-15.2) 09/10/17 03:53 Plt Count 290 K/mm3 (140-440) 09/10/17 03:53 Lymph % (Auto) 7.3 % (13.4-35.0) L 09/10/17 03:53 [place] % (Auto) 13.3 % (0.0-7.3) H 09/10/17 03:53 Eos % (Auto) 0.0 % (0.0-4.3) 09/10/17 03:53 Baso % (Auto) 0.3 % (0.0-1.8) 09/10/17 03:53 Lymph # 0.9 K/mm3 (1.2-5.4) L 09/10/17 03:53 [place] # 1.7 K/mm3 (0.0-0.8) H 09/10/17 03:53 Eos # 0.0 K/mm3 (0.0-0.4) 09/10/17 03:53 Baso # 0.0 K/mm3 (0.0-0.1) 09/10/17 03:53 Seg Neutrophils % 79.1 % (40.0-70.0) H 09/10/17 03:53 Seg Neutrophils # 10.1 K/mm3 (1.8-7.7) H 09/10/17 03:53 Sodium 136 mmol/L (137-145) L 09/11/17 11:56 Potassium 4.7 mmol/L (3.6-5.0) 09/11/17 11:56 Chloride 102.5 mmol/L (98-107) 09/11/17 11:56 Carbon Dioxide 20 mmol/L (22-30) L 09/11/17 11:56 Anion Gap 18 mmol/L 09/11/17 11:56 BUN 29 mg/dL (7-17) H 09/11/17 11:56 Creatinine 0.8 mg/dL (0.7-1.2) 09/11/17 11:56 Estimated GFR > 60 ml/min 09/11/17 11:56 BUN/Creatinine Ratio 36 % 09/11/17 11:56 Glucose 132 mg/dL (65-100) H 09/11/17 11:56 POC Glucose 135 (70-105) H 09/11/17 10:28 Lactic Acid 2.50 mmol/L (0.7-2.0) H* 09/10/17 08:33 Calcium 8.2 mg/dL (8.4-10.2) L 09/11/17 11:56 Phosphorus 3.10 mg/dL (2.5-4.5) 09/10/17 11:42 Magnesium 2.10 mg/dL (1.7-2.3) 09/10/17 11:42 Troponin T < 0.010 ng/mL (0.00-0.029) 09/09/17 18:34 NT-Pro-B Natriuret Pep 336.3 pg/mL (0-900) 09/09/17 21:18 <AUGUST LEMUS M - Last Filed: 09/13/17 17:07> Assessment and Plan Assessment and plan: Patient is transferred to the ICU and she is managed according to DKA protocol. Hospitalist Physical - Constitutional Vitals: Temp Pulse Resp BP Pulse Ox 97.9 F 77 25 H 120/52 94 09/13/17 16:00 09/13/17 16:00 09/13/17 16:00 09/13/17 16:00 09/13/17 16:00 Results - Labs CBC & Chem 7: 09/13/17 11:12 09/13/17 11:12 Labs: Laboratory Last Values WBC 11.3 K/mm3 (4.5-11.0) H 09/13/17 11:12 RBC 3.71 M/mm3 (3.65-5.03) 09/13/17 11:12 Hgb 10.4 gm/dl (10.1-14.3) 09/13/17 11:12 Hct 32.0 % (30.3-42.9) 09/13/17 11:12 MCV 86 fl (79-97) 09/13/17 11:12 MCH 28 pg (28-32) 09/13/17 11:12 MCHC 33 % (30-34) 09/13/17 11:12 RDW 14.3 % (13.2-15.2) 09/13/17 11:12 Plt Count 186 K/mm3 (140-440) 09/13/17 11:12 Lymph % (Auto) 11.4 % (13.4-35.0) L 09/13/17 11:12 [place] % (Auto) 10.0 % (0.0-7.3) H 09/13/17 11:12 Eos % (Auto) 0.1 % (0.0-4.3) 09/13/17 11:12 Baso % (Auto) 0.1 % (0.0-1.8) 09/13/17 11:12 Lymph # 1.3 K/mm3 (1.2-5.4) 09/13/17 11:12 [place] # 1.1 K/mm3 (0.0-0.8) H 09/13/17 11:12 Eos # 0.0 K/mm3 (0.0-0.4) 09/13/17 11:12 Baso # 0.0 K/mm3 (0.0-0.1) 09/13/17 11:12 Seg Neutrophils % 78.4 % (40.0-70.0) H 09/13/17 11:12 Seg Neutrophils # 8.9 K/mm3 (1.8-7.7) H 09/13/17 11:12 Sodium 140 mmol/L (137-145) 09/13/17 11:12 Potassium 4.3 mmol/L (3.6-5.0) D 09/13/17 11:12 Chloride 99.6 mmol/L (98-107) 09/13/17 11:12 Carbon Dioxide 28 mmol/L (22-30) 09/13/17 11:12 Anion Gap 17 mmol/L 09/13/17 11:12 BUN 23 mg/dL (7-17) H 09/13/17 11:12 Creatinine 0.9 mg/dL (0.7-1.2) 09/13/17 11:12 Estimated GFR > 60 ml/min 09/13/17 11:12 BUN/Creatinine Ratio 26 % 09/13/17 11:12 Glucose 318 mg/dL (65-100) H 09/13/17 11:12 POC Glucose 360 (70-105) H 09/13/17 16:02 Lactic Acid 2.50 mmol/L (0.7-2.0) H* 09/10/17 08:33 Calcium 8.3 mg/dL (8.4-10.2) L 09/13/17 11:12 Phosphorus 2.40 mg/dL (2.5-4.5) L D 09/11/17 19:36 Magnesium 2.10 mg/dL (1.7-2.3) 09/11/17 19:36 Troponin T < 0.010 ng/mL (0.00-0.029) 09/09/17 18:34 NT-Pro-B Natriuret Pep 336.3 pg/mL (0-900) 09/09/17 21:18
[2017-09-11] MEDS: LEXAPRO PO SCH (17:31)
[2017-09-11] MEDS ORDERED: D50W (25GM) Syringe IV PRN (17:56)
[2017-09-11] MEDS: WELLBUTRIN SR PO SCH (18:06)
[2017-09-11] MEDS: NACL 0.9% 1000 ML 1,000 ML IV SCH (19:13)
[2017-09-11] MEDS: NovoLIN R 100 UNITS in NACL 0.9% 99 ML IV SCH (19:13)
[2017-09-11] MEDS ORDERED: NovoLIN R 100 UNITS in NACL 0.9% 99 ML IV SCH (20:00)
[2017-09-11 20:36] LABS: Magnesium 2.1 mg/dL (1.7-2.3)
[2017-09-11 20:37] LABS: Calcium 7.9 mg/dL (8.4-10.2)
[2017-09-11] MEDS: XALATAN 0.005% OU SCH (21:43)
[2017-09-12] MEDS: LEXAPRO PO SCH (01:00)
[2017-09-12 01:16] LABS: Calcium 8.2 mg/dL (8.4-10.2)
[2017-09-12] MEDS: DUONEB *Not for PRN Use IH SCH ×4 (04:34→21:00)
[2017-09-12 05:03] LABS: Calcium 7.9 mg/dL (8.4-10.2)
[2017-09-12] MEDS: SYNTHROID PO SCH (05:50)
[2017-09-12] MEDS: NEURONTIN PO SCH ×3 (05:50→21:29)
[2017-09-12] MEDS: NOVOLOG SUB-Q SCH ×4 (07:30→21:37)
[2017-09-12] MEDS: WELLBUTRIN SR PO SCH (10:00)
[2017-09-12] MEDS: LEVAQUIN PO SCH (10:00)
[2017-09-12] MEDS: LASIX PO SCH (10:00)
[2017-09-12] MEDS: IMDUR PO SCH (10:00)
[2017-09-12] MEDS: DELTASONE PO SCH (10:00)
[2017-09-12] MEDS: LOVENOX SUB-Q SCH (10:00)
[2017-09-12] MEDS ORDERED: LEVEMIR SUB-Q ONE (11:00)
[2017-09-12] MEDS: LEVEMIR SUB-Q SCH ×2 (11:01→21:29)
[2017-09-12] MEDS: LOPRESSOR PO SCH (11:09)
[2017-09-12] MEDS: ZESTRIL PO SCH (11:10)
--- NOTE | 2017-09-12 11:34 | Progress Note ---
Assessment and Plan 62 y/o female with DKA 1. Insulin was increased to 50. Stop drip 2 hours after and feed. If tolerates then transfer 2. Should be stable to transfer to the floor CCT 31 minutes Subjective Date of service: 09/12/17 Interval history: patient kept secondary to rising sugar levels. Required insulin drip again. Gap closed this am and stable. Objective - Constitutional Vitals: Vital Signs - 12hr 09/11/17 09/11/17 09/11/17 23:40 23:48 23:50 Temperature 98.9 F Pulse Rate 75 74 Pulse Rate [ Anterior Right Throughout] Respiratory 20 16 Rate Respiratory Rate [Anterior Right Throughout] Respiratory Rate [ Generalized] Blood Pressure 122/51 122/51 O2 Sat by Pulse 94 96 Oximetry 09/12/17 09/12/17 09/12/17 00:00 00:10 00:20 Temperature Pulse Rate 72 76 75 Pulse Rate [ Anterior Right Throughout] Respiratory 15 15 18 Rate Respiratory Rate [Anterior Right Throughout] Respiratory Rate [ Generalized] Blood Pressure 124/59 124/59 124/59 O2 Sat by Pulse 95 95 96 Oximetry 09/12/17 09/12/17 09/12/17 00:30 00:40 00:50 Temperature Pulse Rate 72 74 72 Pulse Rate [ Anterior Right Throughout] Respiratory 15 22 21 Rate Respiratory Rate [Anterior Right Throughout] Respiratory Rate [ Generalized] Blood Pressure 124/59 124/59 124/59 O2 Sat by Pulse 97 97 96 Oximetry 09/12/17 09/12/17 09/12/17 01:00 01:10 01:20 Temperature Pulse Rate 75 73 70 Pulse Rate [ Anterior Right Throughout] Respiratory 20 16 16 Rate Respiratory Rate [Anterior Right Throughout] Respiratory 17 Rate [ Generalized] Blood Pressure 128/54 128/54 128/54 O2 Sat by Pulse 93 95 95 Oximetry 09/12/17 09/12/17 09/12/17 01:30 01:40 01:50 Temperature Pulse Rate 71 71 70 Pulse Rate [ Anterior Right Throughout] Respiratory 15 15 14 Rate Respiratory Rate [Anterior Right Throughout] Respiratory Rate [ Generalized] Blood Pressure 128/54 128/54 128/54 O2 Sat by Pulse 95 95 95 Oximetry 09/12/17 09/12/17 09/12/17 02:00 02:10 02:20 Temperature Pulse Rate 71 71 70 Pulse Rate [ Anterior Right Throughout] Respiratory 15 14 15 Rate Respiratory Rate [Anterior Right Throughout] Respiratory Rate [ Generalized] Blood Pressure 118/54 118/54 118/54 O2 Sat by Pulse 94 95 95 Oximetry 09/12/17 09/12/17 09/12/17 02:30 02:40 02:50 Temperature Pulse Rate 69 70 67 Pulse Rate [ Anterior Right Throughout] Respiratory 15 15 14 Rate Respiratory Rate [Anterior Right Throughout] Respiratory Rate [ Generalized] Blood Pressure 118/54 118/54 118/54 O2 Sat by Pulse 96 96 96 Oximetry 09/12/17 09/12/17 09/12/17 03:00 03:10 03:20 Temperature Pulse Rate 64 68 68 Pulse Rate [ Anterior Right Throughout] Respiratory 18 15 14 Rate Respiratory Rate [Anterior Right Throughout] Respiratory Rate [ Generalized] Blood Pressure 108/54 108/54 108/54 O2 Sat by Pulse 94 96 96 Oximetry 09/12/17 09/12/17 09/12/17 03:30 03:40 03:50 Temperature Pulse Rate 71 68 67 Pulse Rate [ Anterior Right Throughout] Respiratory 13 15 14 Rate Respiratory Rate [Anterior Right Throughout] Respiratory Rate [ Generalized] Blood Pressure 108/54 108/54 108/54 O2 Sat by Pulse 97 97 96 Oximetry 09/12/17 09/12/17 09/12/17 04:00 04:10 04:20 Temperature 98.8 F Pulse Rate 66 65 65 Pulse Rate [ Anterior Right Throughout] Respiratory 21 14 15 Rate Respiratory Rate [Anterior Right Throughout] Respiratory Rate [ Generalized] Blood Pressure 120/55 120/55 120/55 O2 Sat by Pulse 94 97 97 Oximetry 09/12/17 09/12/17 09/12/17 04:30 04:40 04:50 Temperature Pulse Rate 65 64 63 Pulse Rate [ Anterior Right Throughout] Respiratory 15 14 15 Rate Respiratory Rate [Anterior Right Throughout] Respiratory Rate [ Generalized] Blood Pressure 120/55 120/55 120/55 O2 Sat by Pulse 97 97 97 Oximetry 09/12/17 09/12/17 09/12/17 05:00 05:10 05:20 Temperature Pulse Rate 65 64 68 Pulse Rate [ Anterior Right Throughout] Respiratory 14 14 20 Rate Respiratory Rate [Anterior Right Throughout] Respiratory 19 Rate [ Generalized] Blood Pressure 119/60 119/60 119/60 O2 Sat by Pulse 96 97 95 Oximetry 09/12/17 09/12/17 09/12/17 05:30 05:40 05:50 Temperature Pulse Rate 65 65 65 Pulse Rate [ Anterior Right Throughout] Respiratory 14 15 15 Rate Respiratory Rate [Anterior Right Throughout] Respiratory Rate [ Generalized] Blood Pressure 119/60 119/60 119/60 O2 Sat by Pulse 96 96 97 Oximetry 09/12/17 09/12/17 09/12/17 06:00 06:10 06:20 Temperature Pulse Rate 64 63 64 Pulse Rate [ Anterior Right Throughout] Respiratory 15 14 14 Rate Respiratory Rate [Anterior Right Throughout] Respiratory Rate [ Generalized] Blood Pressure 125/55 125/55 125/55 O2 Sat by Pulse 95 97 97 Oximetry 09/12/17 09/12/17 09/12/17 06:30 06:40 06:50 Temperature Pulse Rate 66 74 67 Pulse Rate [ Anterior Right Throughout] Respiratory 22 20 20 Rate Respiratory Rate [Anterior Right Throughout] Respiratory Rate [ Generalized] Blood Pressure 125/55 125/55 125/55 O2 Sat by Pulse 98 97 97 Oximetry 09/12/17 09/12/17 09/12/17 07:00 07:10 07:20 Temperature Pulse Rate 70 66 67 Pulse Rate [ Anterior Right Throughout] Respiratory 23 21 23 Rate Respiratory Rate [Anterior Right Throughout] Respiratory Rate [ Generalized] Blood Pressure 132/64 125/55 125/55 O2 Sat by Pulse 95 97 95 Oximetry 09/12/17 09/12/17 09/12/17 08:00 10:00 11:00 Temperature 98.7 F Pulse Rate 64 Pulse Rate [ 75 75 Anterior Right Throughout] Respiratory Rate Respiratory 18 18 Rate [Anterior Right Throughout] Respiratory Rate [ Generalized] Blood Pressure 138/65 O2 Sat by Pulse 95 Oximetry 09/12/17 09/12/17 11:09 11:10 Temperature Pulse Rate 64 64 Pulse Rate [ Anterior Right Throughout] Respiratory Rate Respiratory Rate [Anterior Right Throughout] Respiratory Rate [ Generalized] Blood Pressure 138/65 138/65 O2 Sat by Pulse Oximetry - Labs CBC & Chem 7: 09/10/17 03:53 09/12/17 04:04 Labs: Abnormal lab results 09/11/17 09/11/17 09/11/17 Range/Units 11:48 11:56 15:15 Sodium 136 L (137-145) mmol/L Chloride (98-107) mmol/L Carbon Dioxide 20 L (22-30) mmol/L BUN 29 H (7-17) mg/dL Creatinine (0.7-1.2) mg/dL Glucose 132 H (65-100) mg/dL POC Glucose 133 H 399 H (70-105) Calcium 8.2 L (8.4-10.2) mg/dL Phosphorus (2.5-4.5) mg/dL 09/11/17 09/11/17 09/11/17 Range/Units 17:25 19:10 19:36 Sodium (137-145) mmol/L Chloride (98-107) mmol/L Carbon Dioxide (22-30) mmol/L BUN (7-17) mg/dL Creatinine (0.7-1.2) mg/dL Glucose (65-100) mg/dL POC Glucose 446 H 421 H (70-105) Calcium (8.4-10.2) mg/dL Phosphorus 2.40 L D (2.5-4.5) mg/dL 09/11/17 09/11/17 09/11/17 Range/Units 19:36 19:58 21:04 Sodium 135 L (137-145) mmol/L Chloride 96.5 L (98-107) mmol/L Carbon Dioxide (22-30) mmol/L BUN 35 H (7-17) mg/dL Creatinine 1.4 H D (0.7-1.2) mg/dL Glucose 459 H (65-100) mg/dL POC Glucose 435 H 333 H (70-105) Calcium 7.9 L (8.4-10.2) mg/dL Phosphorus (2.5-4.5) mg/dL 09/11/17 09/11/17 09/11/17 Range/Units 21:11 22:36 23:02 Sodium 136 L (137-145) mmol/L Chloride 97.1 L (98-107) mmol/L Carbon Dioxide (22-30) mmol/L BUN 34 H (7-17) mg/dL Creatinine 1.3 H (0.7-1.2) mg/dL Glucose 305 H (65-100) mg/dL POC Glucose 225 H 234 H (70-105) Calcium 8.0 L (8.4-10.2) mg/dL Phosphorus (2.5-4.5) mg/dL 09/12/17 09/12/17 09/12/17 Range/Units 00:00 00:14 01:17 Sodium (137-145) mmol/L Chloride (98-107) mmol/L Carbon Dioxide (22-30) mmol/L BUN 31 H (7-17) mg/dL Creatinine (0.7-1.2) mg/dL Glucose 150 H (65-100) mg/dL POC Glucose 167 H 130 H (70-105) Calcium 8.2 L (8.4-10.2) mg/dL Phosphorus (2.5-4.5) mg/dL 09/12/17 09/12/17 09/12/17 Range/Units 03:14 04:04 05:20 Sodium (137-145) mmol/L Chloride (98-107) mmol/L Carbon Dioxide (22-30) mmol/L BUN 29 H (7-17) mg/dL Creatinine (0.7-1.2) mg/dL Glucose 164 H (65-100) mg/dL POC Glucose 160 H 162 H (70-105) Calcium 7.9 L (8.4-10.2) mg/dL Phosphorus (2.5-4.5) mg/dL 09/12/17 Range/Units 06:10 Sodium (137-145) mmol/L Chloride (98-107) mmol/L Carbon Dioxide (22-30) mmol/L BUN (7-17) mg/dL Creatinine (0.7-1.2) mg/dL Glucose (65-100) mg/dL POC Glucose 155 H (70-105) Calcium (8.4-10.2) mg/dL Phosphorus (2.5-4.5) mg/dL
[2017-09-12 12:40] LABS: BUN/Creatinine Ratio 27; Blood Urea Nitrogen 24 mg/dL (7-17); Calcium 7.7 mg/dL (8.4-10.2); Hemolysis Index 7
[2017-09-12] MEDS: D5W/0.45% NACL/KCL 20 MEQ 20 MEQ/1,000 ML BAG IV SCH (14:41)
--- NOTE | 2017-09-12 15:12 | Progress Note ---
<OVIDIO MARIE - Last Filed: 09/12/17 15:06> Assessment and Plan Assessment and plan: Acute asthma exacerbation - Patient is on IV prednisone, nebulizer, oxygen support with Ventimask, IV antibiotics DKA -Now resolved, pt will be transferred to med/surg floor - Blood sugar was greater than 500, anion gap 30, patient shouldn't be admitted to the floor -Patient was given IV fluid bolus, sliding scale insulin, Levemir 10 units, aerial erector consulted Diabetes Mellitus Type 2 ADA diet, accu checks ACHS, SSI Hypertension Depression CHF - Continue appropriate home medications DVT prophylaxis - Lovenox Disposition - Transfer to med/surg floor History Interval history: Patient was seen and examined. She denies chest pain, shortness of breath, nausea vomiting. Labs and nursing notes reviewed. Hospitalist Physical - Constitutional Vitals: Temp Pulse Resp BP Pulse Ox 97.5 F L 79 19 138/65 95 09/12/17 11:50 09/12/17 14:11 09/12/17 14:11 09/12/17 11:10 09/12/17 10:00 General appearance: Present: no acute distress, well-nourished - EENT Eyes: Present: PERRL, EOM intact ENT: hearing intact, clear oral mucosa - Neck Neck: Present: supple, normal ROM - Respiratory Respiratory effort: normal Respiratory: bilateral: CTA - Cardiovascular Rhythm: regular Heart Sounds: Present: S1 & S2 - Extremities Extremities: no ischemia, No edema - Abdominal General gastrointestinal: soft, non-tender, non-distended - Integumentary Integumentary: Present: clear, warm, dry - Psychiatric Psychiatric: appropriate mood/affect, cooperative - Neurologic Neurologic: CNII-XII intact, moves all extremities - Allied Health Allied health notes reviewed: nursing Results - Labs CBC & Chem 7: 09/10/17 03:53 09/12/17 12:05 Labs: Laboratory Last Values WBC 12.7 K/mm3 (4.5-11.0) H 09/10/17 03:53 RBC 4.07 M/mm3 (3.65-5.03) 09/10/17 03:53 Hgb 11.7 gm/dl (10.1-14.3) 09/10/17 03:53 Hct 35.3 % (30.3-42.9) 09/10/17 03:53 MCV 87 fl (79-97) 09/10/17 03:53 MCH 29 pg (28-32) 09/10/17 03:53 MCHC 33 % (30-34) 09/10/17 03:53 RDW 14.0 % (13.2-15.2) 09/10/17 03:53 Plt Count 290 K/mm3 (140-440) 09/10/17 03:53 Lymph % (Auto) 7.3 % (13.4-35.0) L 09/10/17 03:53 [place] % (Auto) 13.3 % (0.0-7.3) H 09/10/17 03:53 Eos % (Auto) 0.0 % (0.0-4.3) 09/10/17 03:53 Baso % (Auto) 0.3 % (0.0-1.8) 09/10/17 03:53 Lymph # 0.9 K/mm3 (1.2-5.4) L 09/10/17 03:53 [place] # 1.7 K/mm3 (0.0-0.8) H 09/10/17 03:53 Eos # 0.0 K/mm3 (0.0-0.4) 09/10/17 03:53 Baso # 0.0 K/mm3 (0.0-0.1) 09/10/17 03:53 Seg Neutrophils % 79.1 % (40.0-70.0) H 09/10/17 03:53 Seg Neutrophils # 10.1 K/mm3 (1.8-7.7) H 09/10/17 03:53 Sodium 139 mmol/L (137-145) 09/12/17 12:05 Potassium 3.8 mmol/L (3.6-5.0) 09/12/17 12:05 Chloride 103.7 mmol/L (98-107) 09/12/17 12:05 Carbon Dioxide 26 mmol/L (22-30) 09/12/17 12:05 Anion Gap 13 mmol/L 09/12/17 12:05 BUN 24 mg/dL (7-17) H 09/12/17 12:05 Creatinine 0.9 mg/dL (0.7-1.2) 09/12/17 12:05 Estimated GFR > 60 ml/min 09/12/17 12:05 BUN/Creatinine Ratio 27 % 09/12/17 12:05 Glucose 113 mg/dL (65-100) H 09/12/17 12:05 POC Glucose 119 (70-105) H 09/12/17 10:55 Lactic Acid 2.50 mmol/L (0.7-2.0) H* 09/10/17 08:33 Calcium 7.7 mg/dL (8.4-10.2) L 09/12/17 12:05 Phosphorus 2.40 mg/dL (2.5-4.5) L D 09/11/17 19:36 Magnesium 2.10 mg/dL (1.7-2.3) 09/11/17 19:36 Troponin T < 0.010 ng/mL (0.00-0.029) 09/09/17 18:34 NT-Pro-B Natriuret Pep 336.3 pg/mL (0-900) 09/09/17 21:18 <AUGUST LEMUS M - Last Filed: 09/13/17 17:09> Assessment and Plan Assessment and plan: The plan was to transfer to [facility] was Levemir 50 units twice a day and high- dose sliding scale insulin, but her blood sugar is shooting up in the 400s and 500s and patient will keep jaja patient in the ICU and her Solu-Medrol was changed to by mouth prednisone. We don't have shell core and molding supervisor to consult. Hospitalist Physical - Constitutional Vitals: Temp Pulse Resp BP Pulse Ox 97.9 F 77 25 H 120/52 94 09/13/17 16:00 09/13/17 16:00 09/13/17 16:00 09/13/17 16:00 09/13/17 16:00 Results - Labs CBC & Chem 7: 09/13/17 11:12 09/13/17 11:12 Labs: Laboratory Last Values WBC 11.3 K/mm3 (4.5-11.0) H 09/13/17 11:12 RBC 3.71 M/mm3 (3.65-5.03) 09/13/17 11:12 Hgb 10.4 gm/dl (10.1-14.3) 09/13/17 11:12 Hct 32.0 % (30.3-42.9) 09/13/17 11:12 MCV 86 fl (79-97) 09/13/17 11:12 MCH 28 pg (28-32) 09/13/17 11:12 MCHC 33 % (30-34) 09/13/17 11:12 RDW 14.3 % (13.2-15.2) 09/13/17 11:12 Plt Count 186 K/mm3 (140-440) 09/13/17 11:12 Lymph % (Auto) 11.4 % (13.4-35.0) L 09/13/17 11:12 [place] % (Auto) 10.0 % (0.0-7.3) H 09/13/17 11:12 Eos % (Auto) 0.1 % (0.0-4.3) 09/13/17 11:12 Baso % (Auto) 0.1 % (0.0-1.8) 09/13/17 11:12 Lymph # 1.3 K/mm3 (1.2-5.4) 09/13/17 11:12 [place] # 1.1 K/mm3 (0.0-0.8) H 09/13/17 11:12 Eos # 0.0 K/mm3 (0.0-0.4) 09/13/17 11:12 Baso # 0.0 K/mm3 (0.0-0.1) 09/13/17 11:12 Seg Neutrophils % 78.4 % (40.0-70.0) H 09/13/17 11:12 Seg Neutrophils # 8.9 K/mm3 (1.8-7.7) H 09/13/17 11:12 Sodium 140 mmol/L (137-145) 09/13/17 11:12 Potassium 4.3 mmol/L (3.6-5.0) D 09/13/17 11:12 Chloride 99.6 mmol/L (98-107) 09/13/17 11:12 Carbon Dioxide 28 mmol/L (22-30) 09/13/17 11:12 Anion Gap 17 mmol/L 09/13/17 11:12 BUN 23 mg/dL (7-17) H 09/13/17 11:12 Creatinine 0.9 mg/dL (0.7-1.2) 09/13/17 11:12 Estimated GFR > 60 ml/min 09/13/17 11:12 BUN/Creatinine Ratio 26 % 09/13/17 11:12 Glucose 318 mg/dL (65-100) H 09/13/17 11:12 POC Glucose 360 (70-105) H 09/13/17 16:02 Lactic Acid 2.50 mmol/L (0.7-2.0) H* 09/10/17 08:33 Calcium 8.3 mg/dL (8.4-10.2) L 09/13/17 11:12 Phosphorus 2.40 mg/dL (2.5-4.5) L D 09/11/17 19:36 Magnesium 2.10 mg/dL (1.7-2.3) 09/11/17 19:36 Troponin T < 0.010 ng/mL (0.00-0.029) 09/09/17 18:34 NT-Pro-B Natriuret Pep 336.3 pg/mL (0-900) 09/09/17 21:18
[2017-09-12] MEDS ORDERED: NOVOLOG SUB-Q ONE (18:33)
[2017-09-12 20:17] LABS: Calcium 7.5 mg/dL (8.4-10.2)
[2017-09-12] MEDS: XALATAN 0.005% OU SCH (21:29)
[2017-09-13] MEDS: SYNTHROID PO SCH (06:57)
[2017-09-13] MEDS: NEURONTIN PO SCH ×3 (06:57→21:30)
[2017-09-13] MEDS: NOVOLOG SUB-Q SCH ×4 (07:45→21:31)
[2017-09-13] MEDS ORDERED: LEVEMIR SUB-Q SCH ×3 (08:00→22:00)
[2017-09-13] MEDS: DUONEB *Not for PRN Use IH SCH ×5 (08:50→19:51)
[2017-09-13] MEDS: DELTASONE PO SCH (09:05)
[2017-09-13] MEDS: LEVAQUIN PO SCH (09:05)
[2017-09-13] MEDS: IMDUR PO SCH (09:05)
[2017-09-13] MEDS: LOVENOX SUB-Q SCH (09:05)
[2017-09-13] MEDS: LOPRESSOR PO SCH (09:06)
[2017-09-13] MEDS: ZESTRIL PO SCH (09:07)
[2017-09-13] MEDS: LASIX PO SCH (09:10)
[2017-09-13] MEDS: LEXAPRO PO SCH (09:11)
[2017-09-13] MEDS: LEVEMIR SUB-Q SCH ×2 (09:12→21:38)
[2017-09-13] MEDS: WELLBUTRIN SR PO SCH (09:13)
[2017-09-13 11:49] LABS: Basophils % (Auto) 0.1 % (0.0-1.8); Eosinophils % (Auto) 0.1 % (0.0-4.3); Hemoglobin 10.4 gm/dl (10.1-14.3); Lymphocytes # (Auto) 1.3 K/mm3 (1.2-5.4); Lymphocytes % (Auto) 11.4 % (13.4-35.0); Mean Corpuscular HGB Conc 33 % (30-34); Mean Corpuscular Hemoglobin 28 pg (28-32); Mean Corpuscular Volume 86 fl (79-97); Monocytes # (Auto) 1.1 K/mm3 (0.0-0.8); Platelet Count 186 K/mm3 (140-440); Red Blood Count 3.71 M/mm3 (3.65-5.03); Red Cell Distribution Width 14.3 % (13.2-15.2)
[2017-09-13 11:52] LABS: BUN/Creatinine Ratio 26; Blood Urea Nitrogen 23 mg/dL (7-17); Calcium 8.3 mg/dL (8.4-10.2); Hemolysis Index 10
--- NOTE | 2017-09-13 14:12 | Progress Note ---
Assessment and Plan 62 y/o female with DKA 1. Will give 10 of Levemir at 16:00 today 2. Continue AC and HS 3. Will continue to monitor. CCT 31 minutes Subjective Date of service: 09/13/17 Interval history: Increase in Levemir did not help. Sugar back in the 500's. Now insulin increase to 60 BID and SSI on High Dose Objective - Constitutional Vitals: Vital Signs - 12hr 09/13/17 09/13/17 09/13/17 03:00 03:32 04:00 Temperature 97.5 F L Pulse Rate 77 80 Pulse Rate [ Anterior Bilateral Throughout] Pulse Rate [ Anterior Right Throughout] Pulse Rate [ Left Dorsalis Pedis] Pulse Rate [ Left Radial] Pulse Rate [ None] Pulse Rate [ Right Dorsalis Pedis] Pulse Rate [ Right Radial] Respiratory 14 15 Rate Respiratory Rate [Anterior Bilateral Throughout] Respiratory Rate [Anterior Right Throughout] Blood Pressure 115/56 120/48 O2 Sat by Pulse 98 96 Oximetry 09/13/17 09/13/17 09/13/17 05:01 06:01 07:01 Temperature Pulse Rate 80 75 72 Pulse Rate [ Anterior Bilateral Throughout] Pulse Rate [ Anterior Right Throughout] Pulse Rate [ Left Dorsalis Pedis] Pulse Rate [ Left Radial] Pulse Rate [ None] Pulse Rate [ Right Dorsalis Pedis] Pulse Rate [ Right Radial] Respiratory 15 20 20 Rate Respiratory Rate [Anterior Bilateral Throughout] Respiratory Rate [Anterior Right Throughout] Blood Pressure 120/48 145/53 145/53 O2 Sat by Pulse 97 95 96 Oximetry 09/13/17 09/13/17 09/13/17 08:00 08:50 08:57 Temperature 98 F Pulse Rate 69 Pulse Rate [ 86 Anterior Bilateral Throughout] Pulse Rate [ 94 H Anterior Right Throughout] Pulse Rate [ 88 Left Dorsalis Pedis] Pulse Rate [ 88 Left Radial] Pulse Rate [ 87 None] Pulse Rate [ 88 Right Dorsalis Pedis] Pulse Rate [ 88 Right Radial] Respiratory 20 Rate Respiratory 16 Rate [Anterior Bilateral Throughout] Respiratory 16 Rate [Anterior Right Throughout] Blood Pressure 134/52 O2 Sat by Pulse 96 Oximetry 09/13/17 09/13/17 09/13/17 09:01 09:05 09:06 Temperature Pulse Rate 88 87 87 Pulse Rate [ Anterior Bilateral Throughout] Pulse Rate [ Anterior Right Throughout] Pulse Rate [ Left Dorsalis Pedis] Pulse Rate [ Left Radial] Pulse Rate [ None] Pulse Rate [ Right Dorsalis Pedis] Pulse Rate [ Right Radial] Respiratory 19 Rate Respiratory Rate [Anterior Bilateral Throughout] Respiratory Rate [Anterior Right Throughout] Blood Pressure 134/52 134/52 134/52 O2 Sat by Pulse 97 Oximetry 09/13/17 09/13/17 09/13/17 09:07 09:13 10:01 Temperature Pulse Rate 86 Pulse Rate [ Anterior Bilateral Throughout] Pulse Rate [ Anterior Right Throughout] Pulse Rate [ Left Dorsalis Pedis] Pulse Rate [ Left Radial] Pulse Rate [ None] Pulse Rate [ Right Dorsalis Pedis] Pulse Rate [ Right Radial] Respiratory Rate Respiratory Rate [Anterior Bilateral Throughout] Respiratory Rate [Anterior Right Throughout] Blood Pressure 134/52 134/52 O2 Sat by Pulse 97 96 Oximetry 09/13/17 09/13/17 09/13/17 11:01 12:00 13:01 Temperature 98 F Pulse Rate 74 71 71 Pulse Rate [ Anterior Bilateral Throughout] Pulse Rate [ Anterior Right Throughout] Pulse Rate [ Left Dorsalis Pedis] Pulse Rate [ Left Radial] Pulse Rate [ None] Pulse Rate [ Right Dorsalis Pedis] Pulse Rate [ Right Radial] Respiratory 18 15 20 Rate Respiratory Rate [Anterior Bilateral Throughout] Respiratory Rate [Anterior Right Throughout] Blood Pressure 122/64 119/53 119/53 O2 Sat by Pulse 97 94 97 Oximetry - Labs CBC & Chem 7: 09/13/17 11:12 09/13/17 11:12 Labs: Abnormal lab results 09/12/17 09/12/17 09/12/17 Range/Units 16:02 18:19 19:38 WBC (4.5-11.0) K/mm3 Lymph % (Auto) (13.4-35.0) % [place] % (Auto) (0.0-7.3) % [place] # (0.0-0.8) K/mm3 Seg Neutrophils % (40.0-70.0) % Seg Neutrophils # (1.8-7.7) K/mm3 Sodium 135 L (137-145) mmol/L Potassium 5.4 H D (3.6-5.0) mmol/L Chloride 97.5 L (98-107) mmol/L BUN 27 H (7-17) mg/dL Glucose 574 H* (65-100) mg/dL POC Glucose 405 H 478 H (70-105) Calcium 7.5 L (8.4-10.2) mg/dL 09/12/17 09/13/17 09/13/17 Range/Units 21:33 11:12 11:12 WBC 11.3 H (4.5-11.0) K/mm3 Lymph % (Auto) 11.4 L (13.4-35.0) % [place] % (Auto) 10.0 H (0.0-7.3) % [place] # 1.1 H (0.0-0.8) K/mm3 Seg Neutrophils % 78.4 H (40.0-70.0) % Seg Neutrophils # 8.9 H (1.8-7.7) K/mm3 Sodium (137-145) mmol/L Potassium (3.6-5.0) mmol/L Chloride (98-107) mmol/L BUN 23 H (7-17) mg/dL Glucose 318 H (65-100) mg/dL POC Glucose 422 H (70-105) Calcium 8.3 L (8.4-10.2) mg/dL
[2017-09-13] MEDS ORDERED: LEVEMIR SUB-Q ONE (16:00)
--- NOTE | 2017-09-13 17:13 | Progress Note ---
History Interval history: Patient was admitted for DKA and asthma exacerbation. Patient's blood sugar is difficult to control. Hospitalist Physical - Constitutional Vitals: Temp Pulse Resp BP Pulse Ox 97.9 F 77 25 H 120/52 94 09/13/17 16:00 09/13/17 16:00 09/13/17 16:00 09/13/17 16:00 09/13/17 16:00 General appearance: Present: no acute distress, well-nourished Results - Labs CBC & Chem 7: 09/13/17 11:12 09/13/17 11:12 Labs: Laboratory Last Values WBC 11.3 K/mm3 (4.5-11.0) H 09/13/17 11:12 RBC 3.71 M/mm3 (3.65-5.03) 09/13/17 11:12 Hgb 10.4 gm/dl (10.1-14.3) 09/13/17 11:12 Hct 32.0 % (30.3-42.9) 09/13/17 11:12 MCV 86 fl (79-97) 09/13/17 11:12 MCH 28 pg (28-32) 09/13/17 11:12 MCHC 33 % (30-34) 09/13/17 11:12 RDW 14.3 % (13.2-15.2) 09/13/17 11:12 Plt Count 186 K/mm3 (140-440) 09/13/17 11:12 Lymph % (Auto) 11.4 % (13.4-35.0) L 09/13/17 11:12 [place] % (Auto) 10.0 % (0.0-7.3) H 09/13/17 11:12 Eos % (Auto) 0.1 % (0.0-4.3) 09/13/17 11:12 Baso % (Auto) 0.1 % (0.0-1.8) 09/13/17 11:12 Lymph # 1.3 K/mm3 (1.2-5.4) 09/13/17 11:12 [place] # 1.1 K/mm3 (0.0-0.8) H 09/13/17 11:12 Eos # 0.0 K/mm3 (0.0-0.4) 09/13/17 11:12 Baso # 0.0 K/mm3 (0.0-0.1) 09/13/17 11:12 Seg Neutrophils % 78.4 % (40.0-70.0) H 09/13/17 11:12 Seg Neutrophils # 8.9 K/mm3 (1.8-7.7) H 09/13/17 11:12 Sodium 140 mmol/L (137-145) 09/13/17 11:12 Potassium 4.3 mmol/L (3.6-5.0) D 09/13/17 11:12 Chloride 99.6 mmol/L (98-107) 09/13/17 11:12 Carbon Dioxide 28 mmol/L (22-30) 09/13/17 11:12 Anion Gap 17 mmol/L 09/13/17 11:12 BUN 23 mg/dL (7-17) H 09/13/17 11:12 Creatinine 0.9 mg/dL (0.7-1.2) 09/13/17 11:12 Estimated GFR > 60 ml/min 09/13/17 11:12 BUN/Creatinine Ratio 26 % 09/13/17 11:12 Glucose 318 mg/dL (65-100) H 09/13/17 11:12 POC Glucose 360 (70-105) H 09/13/17 16:02 Lactic Acid 2.50 mmol/L (0.7-2.0) H* 09/10/17 08:33 Calcium 8.3 mg/dL (8.4-10.2) L 09/13/17 11:12 Phosphorus 2.40 mg/dL (2.5-4.5) L D 09/11/17 19:36 Magnesium 2.10 mg/dL (1.7-2.3) 09/11/17 19:36 Troponin T < 0.010 ng/mL (0.00-0.029) 09/09/17 18:34 NT-Pro-B Natriuret Pep 336.3 pg/mL (0-900) 09/09/17 21:18
--- NOTE | 2017-09-13 17:28 | Progress Note ---
Assessment and Plan Assessment and plan: 62-year-old female was admitted for further management of DKA, asthma exacerbation. DKA - Agent was managed according to DKA protocol, currently the gap is closed, CO2 is normalized - Still blood glucose is difficult to control Diabetes mellitus with hyperglycemia - Patient was started on Levemir 70 units subcutaneous twice a day - Sliding-scale insulin and regular insulin 10 units 3 times a day - Accu-Chek every 4 hours, monitor closely in the ICU Asthma exacerbation - Patient is on 40 mg prednsone, Levaquin, oxygen support, nebulizer treatment Hypothyroidism - Patient is on Levothyroxine Hyperlipidemia patient is on statin DVT prophylaxis -Patient is on Lovenox Disposition - Continue ICU care History Interval history: Patient was admitted for DKA and asthma exacerbation. Patient's blood sugar is difficult to control. Hospitalist Physical - Physical exam Narrative exam: Patient is in respiratory distress, patient is Venturimask. The patient appeared well nourished and normally developed. Vital signs as documented. Head exam is unremarkable. No scleral icterus . Neck is without jugular venous distension, thyromegaly, or carotid bruits. Lungs scattered wheezing all over the chest. Cardiac exam reveals regular rate and Rhythm. First and second heart sounds normal. No murmurs, rubs or gallops. Abdominal exam reveals normal bowel sounds, no masses, no organomegaly and no aortic enlargement. Extremities are nonedematous and both femoral and pedal pulses are normal. MARBLE [place]ON: Alert and oriented 3. No focal weakness. - Constitutional Vitals: Temp Pulse Resp BP Pulse Ox 97.9 F 77 25 H 120/52 94 09/13/17 16:00 09/13/17 16:00 09/13/17 16:00 09/13/17 16:00 09/13/17 16:00 General appearance: Present: no acute distress, well-nourished Results - Labs CBC & Chem 7: 09/13/17 11:12 09/13/17 11:12 Labs: Laboratory Last Values WBC 11.3 K/mm3 (4.5-11.0) H 09/13/17 11:12 RBC 3.71 M/mm3 (3.65-5.03) 09/13/17 11:12 Hgb 10.4 gm/dl (10.1-14.3) 09/13/17 11:12 Hct 32.0 % (30.3-42.9) 09/13/17 11:12 MCV 86 fl (79-97) 09/13/17 11:12 MCH 28 pg (28-32) 09/13/17 11:12 MCHC 33 % (30-34) 09/13/17 11:12 RDW 14.3 % (13.2-15.2) 09/13/17 11:12 Plt Count 186 K/mm3 (140-440) 09/13/17 11:12 Lymph % (Auto) 11.4 % (13.4-35.0) L 09/13/17 11:12 [place] % (Auto) 10.0 % (0.0-7.3) H 09/13/17 11:12 Eos % (Auto) 0.1 % (0.0-4.3) 09/13/17 11:12 Baso % (Auto) 0.1 % (0.0-1.8) 09/13/17 11:12 Lymph # 1.3 K/mm3 (1.2-5.4) 09/13/17 11:12 [place] # 1.1 K/mm3 (0.0-0.8) H 09/13/17 11:12 Eos # 0.0 K/mm3 (0.0-0.4) 09/13/17 11:12 Baso # 0.0 K/mm3 (0.0-0.1) 09/13/17 11:12 Seg Neutrophils % 78.4 % (40.0-70.0) H 09/13/17 11:12 Seg Neutrophils # 8.9 K/mm3 (1.8-7.7) H 09/13/17 11:12 Sodium 140 mmol/L (137-145) 09/13/17 11:12 Potassium 4.3 mmol/L (3.6-5.0) D 09/13/17 11:12 Chloride 99.6 mmol/L (98-107) 09/13/17 11:12 Carbon Dioxide 28 mmol/L (22-30) 09/13/17 11:12 Anion Gap 17 mmol/L 09/13/17 11:12 BUN 23 mg/dL (7-17) H 09/13/17 11:12 Creatinine 0.9 mg/dL (0.7-1.2) 09/13/17 11:12 Estimated GFR > 60 ml/min 09/13/17 11:12 BUN/Creatinine Ratio 26 % 09/13/17 11:12 Glucose 318 mg/dL (65-100) H 09/13/17 11:12 POC Glucose 360 (70-105) H 09/13/17 16:02 Lactic Acid 2.50 mmol/L (0.7-2.0) H* 09/10/17 08:33 Calcium 8.3 mg/dL (8.4-10.2) L 09/13/17 11:12 Phosphorus 2.40 mg/dL (2.5-4.5) L D 09/11/17 19:36 Magnesium 2.10 mg/dL (1.7-2.3) 09/11/17 19:36 Troponin T < 0.010 ng/mL (0.00-0.029) 09/09/17 18:34 NT-Pro-B Natriuret Pep 336.3 pg/mL (0-900) 09/09/17 21:18
[2017-09-13] MEDS: XALATAN 0.005% OU SCH (21:30)
[2017-09-14] MEDS: DUONEB *Not for PRN Use IH SCH ×4 (01:16→20:37)
[2017-09-14] MEDS: NEURONTIN PO SCH ×3 (06:01→21:49)
[2017-09-14] MEDS: SYNTHROID PO SCH (06:01)
[2017-09-14 08:18] LABS: Calcium 9.2 mg/dL (8.4-10.2)
[2017-09-14] MEDS: NOVOLOG SUB-Q SCH ×4 (08:28→21:51)
[2017-09-14] MEDS ORDERED: POTASSIUM CHLORIDE FEEDTUBE ONE (09:49)
[2017-09-14] MEDS: LOPRESSOR PO SCH (10:51)
[2017-09-14] MEDS: LEVAQUIN PO SCH (10:52)
[2017-09-14] MEDS: DELTASONE PO SCH (10:52)
[2017-09-14] MEDS: LEXAPRO PO SCH (10:53)
[2017-09-14] MEDS: WELLBUTRIN SR PO SCH (10:53)
[2017-09-14] MEDS: LASIX PO SCH (10:54)
[2017-09-14] MEDS: ZESTRIL PO SCH (10:54)
[2017-09-14] MEDS: IMDUR PO SCH (10:54)
[2017-09-14] MEDS: LOVENOX SUB-Q SCH (10:55)
[2017-09-14] MEDS: LEVEMIR SUB-Q SCH ×2 (10:56→21:50)
--- NOTE | 2017-09-14 11:37 | Progress Note ---
Assessment and Plan 62 y/o female with DKA 1. Agree with increase in Basal insulin. 2. Agree with Prandial Insulin 3. Suggest giving the midday insulin again today. 4. Would transfer being that she is not requiring insulin drip. Subjective Date of service: 09/14/17 Interval history: Blood sugars still elevated, despite extra long acting insulin given in mid day. Basal now increased to 70 BID. Prandial insulin has been added now. Objective - Constitutional Vitals: Vital Signs - 12hr 09/14/17 09/14/17 09/14/17 00:00 01:01 02:00 Temperature Pulse Rate 81 75 71 Pulse Rate [ Anterior Bilateral Throughout] Respiratory 15 14 Rate Respiratory Rate [Anterior Bilateral Throughout] Blood Pressure 131/54 131/54 138/63 O2 Sat by Pulse 94 96 97 Oximetry 09/14/17 09/14/17 09/14/17 03:01 03:33 04:00 Temperature 98.8 F Pulse Rate 72 72 Pulse Rate [ Anterior Bilateral Throughout] Respiratory 14 13 Rate Respiratory Rate [Anterior Bilateral Throughout] Blood Pressure 138/63 130/60 O2 Sat by Pulse 97 96 Oximetry 09/14/17 09/14/17 09/14/17 05:01 06:01 07:01 Temperature Pulse Rate 69 71 69 Pulse Rate [ Anterior Bilateral Throughout] Respiratory 13 15 15 Rate Respiratory Rate [Anterior Bilateral Throughout] Blood Pressure 130/60 130/60 130/60 O2 Sat by Pulse 98 92 95 Oximetry 09/14/17 09/14/17 09/14/17 08:00 09:47 10:00 Temperature 98.8 F Pulse Rate 73 Pulse Rate [ 77 83 Anterior Bilateral Throughout] Respiratory 14 Rate Respiratory 16 20 Rate [Anterior Bilateral Throughout] Blood Pressure 122/53 O2 Sat by Pulse 95 94 Oximetry 09/14/17 09/14/17 10:51 10:54 Temperature Pulse Rate 92 H 92 H Pulse Rate [ Anterior Bilateral Throughout] Respiratory Rate Respiratory Rate [Anterior Bilateral Throughout] Blood Pressure 132/57 132/57 O2 Sat by Pulse Oximetry General appearance: Present: no acute distress, obese - EENT Eyes: PERRL, EOM intact ENT: hearing intact, clear oral mucosa - Neck Neck: supple, normal ROM - Respiratory Respiratory effort: normal - Labs CBC & Chem 7: 09/13/17 11:12 09/14/17 07:32 Labs: Abnormal lab results 09/13/17 09/13/17 09/13/17 Range/Units 07:56 11:08 11:12 WBC 11.3 H (4.5-11.0) K/mm3 Lymph % (Auto) 11.4 L (13.4-35.0) % [place] % (Auto) 10.0 H (0.0-7.3) % [place] # 1.1 H (0.0-0.8) K/mm3 Seg Neutrophils % 78.4 H (40.0-70.0) % Seg Neutrophils # 8.9 H (1.8-7.7) K/mm3 Potassium (3.6-5.0) mmol/L BUN (7-17) mg/dL Creatinine (0.7-1.2) mg/dL Glucose (65-100) mg/dL POC Glucose 244 H 286 H (70-105) Calcium (8.4-10.2) mg/dL 09/13/17 09/13/17 09/13/17 Range/Units 11:12 16:02 21:25 WBC (4.5-11.0) K/mm3 Lymph % (Auto) (13.4-35.0) % [place] % (Auto) (0.0-7.3) % [place] # (0.0-0.8) K/mm3 Seg Neutrophils % (40.0-70.0) % Seg Neutrophils # (1.8-7.7) K/mm3 Potassium (3.6-5.0) mmol/L BUN 23 H (7-17) mg/dL Creatinine (0.7-1.2) mg/dL Glucose 318 H (65-100) mg/dL POC Glucose 360 H 422 H (70-105) Calcium 8.3 L (8.4-10.2) mg/dL 09/14/17 09/14/17 Range/Units 07:32 08:08 WBC (4.5-11.0) K/mm3 Lymph % (Auto) (13.4-35.0) % [place] % (Auto) (0.0-7.3) % [place] # (0.0-0.8) K/mm3 Seg Neutrophils % (40.0-70.0) % Seg Neutrophils # (1.8-7.7) K/mm3 Potassium 3.5 L (3.6-5.0) mmol/L BUN 81 H (7-17) mg/dL Creatinine 2.1 H D (0.7-1.2) mg/dL Glucose 222 H (65-100) mg/dL POC Glucose 139 H (70-105) Calcium (8.4-10.2) mg/dL
[2017-09-14 13:45] LABS: Free T4 (Free Thyroxine) 1.78 ng/dL (0.76-1.46)
--- NOTE | 2017-09-14 15:46 | Progress Note ---
Assessment and Plan Assessment and plan: 62-year-old female was admitted for further management of DKA, asthma exacerbation. DKA -Patient was managed according to DKA protocol, currently the gap is closed, CO2 is normalized - Still blood glucose is difficult to control Diabetes mellitus with hyperglycemia - Patient was started on Levemir 70 units subcutaneous twice a day - Sliding-scale insulin and regular insulin 10 units 3 times a day - Accu-Chek every 4 hours, monitor blood glucose closely Asthma exacerbation - Patient is on 40 mg prednsone, Levaquin, oxygen support, nebulizer treatment Hypothyroidism - Patient is on Levothyroxine Hyperlipidemia patient is on statin Acute kidney injury - Likely due to vasomotor nephropathy - Held Lisinopril and change Levaquin to 48 hours DVT prophylaxis -Patient is on Lovenox Disposition - Continue ICU care History Interval history: Patient was admitted for DKA and asthma exacerbation. Patient's blood sugar is difficult to control. Hospitalist Physical - Physical exam Narrative exam: Patient is in respiratory distress, patient is Venturimask. The patient appeared well nourished and normally developed. Vital signs as documented. Head exam is unremarkable. No scleral icterus . Neck is without jugular venous distension, thyromegaly, or carotid bruits. Lungs scattered wheezing all over the chest. Cardiac exam reveals regular rate and Rhythm. First and second heart sounds normal. No murmurs, rubs or gallops. Abdominal exam reveals normal bowel sounds, no masses, no organomegaly and no aortic enlargement. Extremities are nonedematous and both femoral and pedal pulses are normal. [employer]PUT[employer]WORKING [employer]: Alert and oriented 3. No focal weakness. - Constitutional Vitals: Temp Pulse Resp BP Pulse Ox 98.2 F 107 H 24 111/48 91 09/14/17 12:00 09/14/17 14:00 09/14/17 14:00 09/14/17 14:00 09/14/17 14:00 General appearance: Present: no acute distress, obese Results - Labs CBC & Chem 7: 09/13/17 11:12 09/14/17 07:32 Labs: Laboratory Last Values WBC 11.3 K/mm3 (4.5-11.0) H 09/13/17 11:12 RBC 3.71 M/mm3 (3.65-5.03) 09/13/17 11:12 Hgb 10.4 gm/dl (10.1-14.3) 09/13/17 11:12 Hct 32.0 % (30.3-42.9) 09/13/17 11:12 MCV 86 fl (79-97) 09/13/17 11:12 MCH 28 pg (28-32) 09/13/17 11:12 MCHC 33 % (30-34) 09/13/17 11:12 RDW 14.3 % (13.2-15.2) 09/13/17 11:12 Plt Count 186 K/mm3 (140-440) 09/13/17 11:12 Lymph % (Auto) 11.4 % (13.4-35.0) L 09/13/17 11:12 [place] % (Auto) 10.0 % (0.0-7.3) H 09/13/17 11:12 Eos % (Auto) 0.1 % (0.0-4.3) 09/13/17 11:12 Baso % (Auto) 0.1 % (0.0-1.8) 09/13/17 11:12 Lymph # 1.3 K/mm3 (1.2-5.4) 09/13/17 11:12 [place] # 1.1 K/mm3 (0.0-0.8) H 09/13/17 11:12 Eos # 0.0 K/mm3 (0.0-0.4) 09/13/17 11:12 Baso # 0.0 K/mm3 (0.0-0.1) 09/13/17 11:12 Seg Neutrophils % 78.4 % (40.0-70.0) H 09/13/17 11:12 Seg Neutrophils # 8.9 K/mm3 (1.8-7.7) H 09/13/17 11:12 Sodium 142 mmol/L (137-145) 09/14/17 07:32 Potassium 3.5 mmol/L (3.6-5.0) L 09/14/17 07:32 Chloride 98.2 mmol/L (98-107) 09/14/17 07:32 Carbon Dioxide 25 mmol/L (22-30) 09/14/17 07:32 Anion Gap 22 mmol/L 09/14/17 07:32 BUN 81 mg/dL (7-17) H 09/14/17 07:32 Creatinine 2.1 mg/dL (0.7-1.2) H D 09/14/17 07:32 Estimated GFR 24 ml/min 09/14/17 07:32 BUN/Creatinine Ratio 39 % 09/14/17 07:32 Glucose 222 mg/dL (65-100) H 09/14/17 07:32 POC Glucose 139 (70-105) H 09/14/17 08:08 Lactic Acid 2.50 mmol/L (0.7-2.0) H* 09/10/17 08:33 Calcium 9.2 mg/dL (8.4-10.2) 09/14/17 07:32 Phosphorus 2.40 mg/dL (2.5-4.5) L D 09/11/17 19:36 Magnesium 2.10 mg/dL (1.7-2.3) 09/11/17 19:36 Troponin T < 0.010 ng/mL (0.00-0.029) 09/09/17 18:34 NT-Pro-B Natriuret Pep 336.3 pg/mL (0-900) 09/09/17 21:18 TSH 1.240 mlU/mL (0.270-4.200) 09/14/17 12:10 Free T4 1.78 ng/dL (0.76-1.46) H 09/14/17 12:10
[2017-09-14] MEDS: XALATAN 0.005% OU SCH (21:50)
[2017-09-15] MEDS ORDERED: PROVENTIL IH PRN (01:40)
[2017-09-15] MEDS: NOVOLOG SUB-Q SCH ×3 (02:09→10:22)
[2017-09-15] MEDS: NEURONTIN PO SCH (05:52)
[2017-09-15] MEDS: SYNTHROID PO SCH (05:53)
[2017-09-15 08:17] LABS: Basophils % (Auto) 0.1 % (0.0-1.8); Eosinophils % (Auto) 0.2 % (0.0-4.3); Hematocrit 32.2 % (30.3-42.9); Hemoglobin 10.7 gm/dl (10.1-14.3); Lymphocytes # (Auto) 1.8 K/mm3 (1.2-5.4); Lymphocytes % (Auto) 16.9 % (13.4-35.0); Mean Corpuscular HGB Conc 33 % (30-34); Mean Corpuscular Hemoglobin 29 pg (28-32); Mean Corpuscular Volume 86 fl (79-97); Monocytes # (Auto) 0.8 K/mm3 (0.0-0.8); Monocytes % (Auto) 7.6 % (0.0-7.3); Platelet Count 177 K/mm3 (140-440); Red Blood Count 3.76 M/mm3 (3.65-5.03); Red Cell Distribution Width 14.3 % (13.2-15.2)
[2017-09-15 08:22] LABS: BUN/Creatinine Ratio 31; Blood Urea Nitrogen 28 mg/dL (7-17); Calcium 8.5 mg/dL (8.4-10.2); Hemolysis Index 10
[2017-09-15 08:41] VITALS: BP 130/64
[2017-09-15] MEDS: IMDUR PO SCH (09:53)
[2017-09-15] MEDS: LEXAPRO PO SCH (09:53)
[2017-09-15] MEDS: LOPRESSOR PO SCH (09:54)
[2017-09-15] MEDS: DELTASONE PO SCH (09:54)
[2017-09-15] MEDS: LASIX PO SCH (09:54)
[2017-09-15] MEDS: WELLBUTRIN SR PO SCH (09:54)
[2017-09-15] MEDS ORDERED: LOVENOX SUB-Q SCH (10:00)
[2017-09-15] MEDS: LEVEMIR SUB-Q SCH (10:16)
--- NOTE | 2017-09-15 10:47 | Discharge Summary ---
Providers - Providers Date of Admission: 09/09/17 23:20 Attending physician: AUGUST LEMUS MD 09/10/17 11:37 Consult to Physician [CONS] Routine Consulting Provider: SUREKHA ONOFRE Reason For Exam: DKA, needs ICU transfer Place consult to:: [facility] Notified:: yes Comment:: Dr Onofre here and aware 09/10/17 11:40 Consult to Dietitian/Nutrition [CONS] Routine Physician Instructions: Reason For Exam: DKA Reason for Consult: Nutrition Recommendations Reason for Consult: Diet education 09/11/17 17:56 Consult to Case Management [CONS] Routine Services Needed at Discharge: Home Health Services Notified:: no Primary care physician: TAPAN GUZMAN Hospitalization Condition: Stable Disposition: DC-30 STILL A PATIENT Exam - Constitutional Vitals: Temp Pulse Resp BP Pulse Ox 97.8 F 74 18 130/64 94 09/15/17 07:30 09/15/17 09:54 09/15/17 07:30 09/15/17 09:54 09/15/17 10:23 Plan Activity: advance as tolerated, fall precautions Weight Bearing Status: Weight Bear as Tolerated Diet: low fat, low cholesterol, low salt, diabetic Follow up with: TAPAN GUZMAN MD [Primary Care Provider] - 3-5 Days Prescriptions: Albuterol Sulfate [Proventil Hfa] 6.7 gm IH Q4H #1 hfa.aer.ad Inhaler, Assist Devices [Space Chamber Plus] 1 each MC PRN #1 spacer methylPREDNISolone [Medrol Dose Alexander] 4 mg PO DAILY #1 pack Levofloxacin [Levaquin TAB] 750 mg PO Q48HR #7 tablet
[2017-09-16] MEDS ORDERED: LEVAQUIN PO SCH (10:00)
[2017-09-16] MEDS ORDERED: LOVENOX SUB-Q SCH (10:00)
== END 2017-09-15 13:07 | disposition home or self-care (01) | DRG 637 ==
LOC: ED 17:25 → 3A 23:20 → CC1 09-10 20:43 → 4A 09-14 18:33
PROVIDERS: ADMIT Internal Medicine; ATTEND Internal Medicine
DX: E11.10 Type 2 diabetes mellitus with ketoacidosis without coma (principal); N17.0 Acute kidney failure with tubular necrosis; J96.21 Acute and chronic respiratory failure with hypoxia; J45.901 Unspecified asthma with (acute) exacerbation; J20.9 Acute bronchitis, unspecified; E78.5 Hyperlipidemia, unspecified; E03.9 Hypothyroidism, unspecified; M79.7 Fibromyalgia; K21.9 Gastro-esophageal reflux disease without esophagitis; M19.90 Unspecified osteoarthritis, unspecified site; I11.0 Hypertensive heart disease with heart failure; E11.65 Type 2 diabetes mellitus with hyperglycemia; F32.9 Major depressive disorder, single episode, unspecified; I50.9 Heart failure, unspecified; Z79.899 Other long term (current) drug therapy; Z88.0 Allergy status to penicillin; Z88.8 Allergy status to other drugs, medicaments and biological substances; Z82.49 Family history of ischemic heart disease and other diseases of the circulatory system
CPT/HCPCS: 36415; 71046; 71250; 80048; 82140; 82962; 83735; 83880; 84100; 84439; 84443; 84484; 85025; 87040; 93005; 93010; 93306; 94640; 94760; 96374; 99291; A9270-GY; J1650; J1815; J1818; J1956; J2405; J2920; J2930; J7030; J7512

== ENCOUNTER 2017-12-04 12:51 | Emergency (ER) | payer MEDICAID ==
[2017-12-04 14:44] LABS: Basophils # (Auto) 0.1 K/mm3 (0.0-0.1); Basophils % (Auto) 0.9 % (0.0-1.8); Eosinophils # (Auto) 0.7 K/mm3 (0.0-0.4); Eosinophils % (Auto) 6.2 % (0.0-4.3); Hematocrit 46.7 % (30.3-42.9); Hemoglobin 15.6 gm/dl (10.1-14.3); Lymphocytes # (Auto) 2.2 K/mm3 (1.2-5.4); Mean Corpuscular HGB Conc 33 % (30-34); Mean Corpuscular Hemoglobin 28 pg (28-32); Mean Corpuscular Volume 85 fl (79-97); Monocytes # (Auto) 0.8 K/mm3 (0.0-0.8); Monocytes % (Auto) 7.9 % (0.0-7.3); Platelet Count 188 K/mm3 (140-440); Red Blood Count 5.52 M/mm3 (3.65-5.03); Red Cell Distribution Width 14.6 % (13.2-15.2)
[2017-12-04 15:07] LABS: Calcium 9.6 mg/dL (8.4-10.2)
[2017-12-04 15:22] LABS: Bacteria,Urine 1+ /HPF (Negative); Bilirubin,Urine NEG (Negative); Blood,Urine NEG (Negative); Color,Urine Yellow (Yellow); Protein,Urine <15 mg/dL mg/dL (Negative); Urobilinogen,Urine < 2.0 mg/dL (<2.0)
--- NOTE | 2017-12-04 16:40 | Emergency Department Report ---
ED General Adult HPI - General Chief complaint: Hypoglycemia Stated complaint: HYPOGLYCEMIC Source: EMS Mode of arrival: Stretcher Limitations: No Limitations - History of Present Illness Initial comments: 62-year-old female with a past medical or asthma, CHF, diabetes, GERD, hypertension, renal sufficiency, elevated cholesterol, fibromyalgia, and thyroid disease versus possible complaints of drop in blood sugar. Patient last took her Humalog 40 units and metformin 1000 mg prior to dinner. She did not have her typical night snack. This morning she felt very weak and can barely walk and could not make it to get a snack. She called EMS. She is hypoglycemic in the 40s upon arrival. She received some IV D10 with improvement of blood glucose and symptoms prior to arrival. Patient complains of some sinus pressure with denies fever, chest pain, shortness of breath, nausea, vomiting, diarrhea, or dysuria. - Related Data Home Medications Medication Instructions Recorded Confirmed Last Taken Escitalopram Oxalate [Lexapro] 20 mg PO QDAY MDD 20 mg 07/21/13 09/10/17 20 mg Furosemide [Lasix] 40 mg PO DAILY MDD 40 mg 07/21/13 09/10/17 09/08/17 40 mg Gabapentin [Neurontin] 800 mg PO TID MDD 800 mg 07/21/13 09/10/17 09/08/17 800 mg Levothyroxine [Synthroid] 112 mcg PO QAM MDD 112 mcg 07/21/13 09/10/17 09/08/17 112 mcg Lisinopril [Zestril TAB] 10 mg PO QDAY MDD 10 mg 07/21/13 09/10/17 09/08/17 10 mg Loratadine [Claritin] 10 mg PO DAILY MDD 10 mg 07/21/13 09/10/17 09/08/17 10 mg Metoprolol [Lopressor TAB] 25 mg PO QDAY MDD 25 07/21/13 09/10/17 09/08/17 25 mg metFORMIN [Glucophage] 500 mg PO DAILY MDD 500 mg 07/21/13 09/10/17 09/08/17 500 mg Latanoprost 0.005% 1 drop OU QHS MDD 1 drop /07/2309/10/17 09/08/17 1 drop AtorvaSTATin [Lipitor] 40 mg PO QHS MDD 40 mg 09/10/17 09/10/17 09/08/17 40 mg Bupropion HCl [Bupropion HCl Sr] 150 mg PO DAILY MDD 150 mg 09/10/17 09/10/17 150 mg Isosorbide Mononitrate 30 mg PO DAILY MDD 30 mg 09/10/17 09/10/17 09/08/17 30 mg traMADol [Ultram 50 MG tab] 50 mg PO PRN PRN MDD 50 mg 09/10/17 09/10/17 50 mg Previous Rx's Medication Instructions Recorded Last Taken Type Albuterol Sulfate [Proventil Hfa] 6.7 gm IH Q4H #1 hfa.aer.ad 09/15/17 Unknown Rx Detemir (Nf) [Levemir (Nf)] 70 units SUB-Q BID units 09/15/17 Unknown Rx Inhaler, Assist Devices [Space 1 each MC PRN #1 spacer 09/15/17 Unknown Rx Chamber Plus] Insulin Regular, Human [HumuLIN R] 10 units SUB-Q ACHS units 09/15/17 Unknown Rx Levofloxacin [Levaquin TAB] 750 mg PO Q48HR #7 tablet 09/15/17 Unknown Rx methylPREDNISolone [Medrol Dose 4 mg PO DAILY #1 pack 09/15/17 Unknown Rx Alexander] Allergies Allergy/AdvReac Type Severity Reaction Status Date / Time imipramine HCl Allergy Unknown Verified 09/01/17 12:43 [From Tofranil] Penicillins Allergy Vomiting Verified 09/01/17 12:43 ED Review of Systems ROS: Stated complaint: HYPOGLYCEMIC Other details as noted in HPI Comment: All other systems reviewed and negative ED Past Medical Hx - Past Medical History Hx Hypertension: Yes Hx Congestive Heart Failure: Yes Hx Diabetes: Yes Hx GERD: Yes Hx Renal Disease: Yes Hx Arthritis: Yes (hands) Hx Asthma: Yes Hx COPD: No Hx HIV: No Additional medical history: neuropathy MRSA. high cholesterol. fibromyalgia. glaucoma. thyroid - Surgical History Past Surgical History?: Yes Additional Surgical History: parotid gland removed - Social History Smoking Status: Never Smoker Substance Use Type: None - Medications Home Medications: Home Medications Medication Instructions Recorded Confirmed Last Taken Type Escitalopram Oxalate [Lexapro] 20 mg PO QDAY MDD 20 mg 07/21/13 09/10/17 History 20 mg Furosemide [Lasix] 40 mg PO DAILY MDD 40 mg 07/21/13 09/10/17 09/08/17 History 40 mg Gabapentin [Neurontin] 800 mg PO TID MDD 800 mg 07/21/13 09/10/17 09/08/17 History 800 mg Levothyroxine [Synthroid] 112 mcg PO QAM MDD 112 mcg 07/21/13 09/10/17 09/08/17 History 112 mcg Lisinopril [Zestril TAB] 10 mg PO QDAY MDD 10 mg 07/21/13 09/10/17 09/08/17 History 10 mg Loratadine [Claritin] 10 mg PO DAILY MDD 10 mg 07/21/13 09/10/17 09/08/17 History 10 mg Metoprolol [Lopressor TAB] 25 mg PO QDAY MDD 25 07/21/13 09/10/17 09/08/17 History 25 mg metFORMIN [Glucophage] 500 mg PO DAILY MDD 500 mg 07/21/13 09/10/17 09/08/17 History 500 mg Latanoprost 0.005% 1 drop OU QHS MDD 1 drop 07/22/13 09/10/17 09/08/17 History 1 drop AtorvaSTATin [Lipitor] 40 mg PO QHS MDD 40 mg 09/10/17 09/10/17 09/08/17 History 40 mg Bupropion HCl [Bupropion HCl Sr] 150 mg PO DAILY MDD 150 mg 09/10/17 09/10/17 History 150 mg Isosorbide Mononitrate 30 mg PO DAILY MDD 30 mg 09/10/17 09/10/17 09/08/17 History 30 mg traMADol [Ultram 50 MG tab] 50 mg PO PRN PRN MDD 50 mg 09/10/17 09/10/17 History 50 mg Albuterol Sulfate [Proventil Hfa] 6.7 gm IH Q4H #1 hfa.aer.ad 09/15/17 Unknown Rx Detemir (Nf) [Levemir (Nf)] 70 units SUB-Q BID units 09/15/17 Unknown Rx Inhaler, Assist Devices [Space 1 each MC PRN #1 spacer 09/15/17 Unknown Rx Chamber Plus] Insulin Regular, Human [HumuLIN R] 10 units SUB-Q ACHS units 09/15/17 Unknown Rx Levofloxacin [Levaquin TAB] 750 mg PO Q48HR #7 tablet 09/15/17 Unknown Rx methylPREDNISolone [Medrol Dose 4 mg PO DAILY #1 pack 09/15/17 Unknown Rx Alexander] ED Physical Exam - General Limitations: No Limitations - Other Other exam information: General: No limitations, patient is alert in no acute distress Head exam: Atraumatic, normocephalic Eyes exam: Normal appearance, pupils equal reactive to light ENT: Moist mucous membrane, normal oropharynx, no significant maxillary or frontal sinus tenderness Neck exam: Normal inspection, full range of motion, no meningismus nontender Respiratory exam: Clear to auscultation bilateral, no wheezes, rales, crackles Cardiovascular: Normal rate and rhythm, normal heart sounds Abdomen: Soft, nondistended, and nontender, with normal bowel sounds, no rebound, or guarding Extremity: Full range of motion normal inspection no deformity Back: Normal Inspection, full range of motion, no tenderness Neurologic: Alert, oriented x3, cranial nerves intact, no motor or sensory deficit Psychiatric: normal affect, normal mood Skin: Warm, dry, intact ED Course Vital Signs 12/04/17 12/04/17 12/04/17 13:17 13:30 13:45 Temperature 98.8 F Pulse Rate 68 69 Respiratory 13 13 18 Rate Blood Pressure 114/46 131/60 O2 Sat by Pulse 99 Oximetry 12/04/17 16:17 Temperature Pulse Rate Respiratory 20 Rate Blood Pressure O2 Sat by Pulse 98 Oximetry ED Medical Decision Making - Lab Data Result diagrams: 12/04/17 14:26 12/04/17 14:26 Lab Results 12/04/17 12/04/17 12/04/17 Range/Units 14:07 14:26 14:26 WBC 10.8 (4.5-11.0) K/mm3 RBC 5.52 H (3.65-5.03) M/mm3 Hgb 15.6 H (10.1-14.3) gm/dl Hct 46.7 H (30.3-42.9) % MCV 85 (79-97) fl MCH 28 (28-32) pg MCHC 33 (30-34) % RDW 14.6 (13.2-15.2) % Plt Count 188 (140-440) K/mm3 Lymph % (Auto) 20.0 (13.4-35.0) % [place] % (Auto) 7.9 H (0.0-7.3) % Eos % (Auto) 6.2 H (0.0-4.3) % Baso % (Auto) 0.9 (0.0-1.8) % Lymph # 2.2 (1.2-5.4) K/mm3 [place] # 0.8 (0.0-0.8) K/mm3 Eos # 0.7 H (0.0-0.4) K/mm3 Baso # 0.1 (0.0-0.1) K/mm3 Seg Neutrophils % 65.0 (40.0-70.0) % Seg Neutrophils # 7.0 (1.8-7.7) K/mm3 Sodium 140 (137-145) mmol/L Potassium 4.3 (3.6-5.0) mmol/L Chloride 100.3 (98-107) mmol/L Carbon Dioxide 25 (22-30) mmol/L Anion Gap 19 mmol/L BUN 31 H (7-17) mg/dL Creatinine 1.4 H (0.7-1.2) mg/dL Estimated GFR 38 ml/min BUN/Creatinine Ratio 22 % Glucose 168 H (65-100) mg/dL POC Glucose 158 H (70-105) Calcium 9.6 (8.4-10.2) mg/dL Urine Color (Yellow) Urine Turbidity (Clear) Urine pH (5.0-7.0) Ur Specific [place] (1.003-1.030) Urine Protein (Negative) mg/dL Urine Glucose (UA) (Negative) mg/dL Urine Ketones (Negative) mg/dL Urine Blood (Negative) Urine Nitrite (Negative) Urine Bilirubin (Negative) Urine Urobilinogen (<2.0) mg/dL Ur Leukocyte Esterase (Negative) Urine WBC (Auto) (0.0-6.0) /HPF Urine RBC (Auto) (0.0-6.0) /HPF Urine Bacteria (Auto) (Negative) /HPF 12/04/17 12/04/17 Range/Units 16:20 Unknown WBC (4.5-11.0) K/mm3 RBC (3.65-5.03) M/mm3 Hgb (10.1-14.3) gm/dl Hct (30.3-42.9) % MCV (79-97) fl MCH (28-32) pg MCHC (30-34) % RDW (13.2-15.2) % Plt Count (140-440) K/mm3 Lymph % (Auto) (13.4-35.0) % [place] % (Auto) (0.0-7.3) % Eos % (Auto) (0.0-4.3) % Baso % (Auto) (0.0-1.8) % Lymph # (1.2-5.4) K/mm3 [place] # (0.0-0.8) K/mm3 Eos # (0.0-0.4) K/mm3 Baso # (0.0-0.1) K/mm3 Seg Neutrophils % (40.0-70.0) % Seg Neutrophils # (1.8-7.7) K/mm3 Sodium (137-145) mmol/L Potassium (3.6-5.0) mmol/L Chloride (98-107) mmol/L Carbon Dioxide (22-30) mmol/L Anion Gap mmol/L BUN (7-17) mg/dL Creatinine (0.7-1.2) mg/dL Estimated GFR ml/min BUN/Creatinine Ratio % Glucose (65-100) mg/dL POC Glucose 215 H (70-105) Calcium (8.4-10.2) mg/dL Urine Color Yellow (Yellow) Urine Turbidity Clear (Clear) Urine pH 6.0 (5.0-7.0) Ur Specific [place] 1.015 (1.003-1.030) Urine Protein <15 mg/dl (Negative) mg/dL Urine Glucose (UA) Neg (Negative) mg/dL Urine Ketones Neg (Negative) mg/dL Urine Blood Neg (Negative) Urine Nitrite Neg (Negative) Urine Bilirubin Neg (Negative) Urine Urobilinogen < 2.0 (<2.0) mg/dL Ur Leukocyte Esterase Neg (Negative) Urine WBC (Auto) 1.0 (0.0-6.0) /HPF Urine RBC (Auto) 1.0 (0.0-6.0) /HPF Urine Bacteria (Auto) 1+ (Negative) /HPF - Medical Decision Making Plan discharge patient home. Glucose remained stable. Patient tolerated a food tray. Hypoglycemia likely secondary to patient not having her evening snack if she is not able to make it to her am food before symptoms started. Patient has mild elevation in creatinine compared to previous value and has been as high as 2.1 in the past. Her BUN is chronically in the 30s and patient is on Lasix. - Differential Diagnosis insulin reaction, fasting hypoglycemia, infection Critical Care Time: No Critical care attestation.: If time is entered above; I have spent that time in minutes in the direct care of this critically ill patient, excluding procedure time. ED Disposition Clinical Impression: Hypoglycemia, Insulin reaction, CRI (chronic renal insufficiency) Disposition: DC- TO HOME OR SELFCARE Is pt being admited?: No Does the pt Need Aspirin: No Condition: Stable Instructions: Diabetic Hypoglycemia (ED) Additional Instructions: Continue your medication as prescribed. Continue to eat as scheduled. Follow up with your doctor for further evaluation and for continued monitoring of your kidney function. Return is symptoms worsen. Referrals: JACKSON WILLSON MD [Referring] - 3-5 Days Time of Disposition: 16:40
[2017-12-04 16:56] VITALS: BP 129/93
== END 2017-12-04 18:15 | disposition home or self-care (01) ==
LOC: ED 12:51
DX: T38.3X5A Adverse effect of insulin and oral hypoglycemic [antidiabetic] drugs, initial encounter (principal); E11.649 Type 2 diabetes mellitus with hypoglycemia without coma; Y92.89 Other specified places as the place of occurrence of the external cause; E11.22 Type 2 diabetes mellitus with diabetic chronic kidney disease; I12.9 Hypertensive chronic kidney disease with stage 1 through stage 4 chronic kidney disease, or unspecified chronic kidney disease; N18.9 Chronic kidney disease, unspecified; J45.909 Unspecified asthma, uncomplicated
CPT/HCPCS: 36415; 80048; 81001; 82962; 85025

== ENCOUNTER 2018-03-15 11:17 | Emergency (ER) | payer MEDICAID ==
[2018-03-15 11:31] VITALS: BP 171/59
[2018-03-15] MEDS ORDERED: BACTRIM DS PO ONE (12:15)
--- NOTE | 2018-03-15 12:15 | Emergency Department Report ---
Chief Complaint: Wound/Laceration Stated Complaint: FOOT INFECTION Time Seen by Provider: 03/15/18 12:04 - HPI History of Present Illness: 62-year-old female presents to the emergency department with a left diabetic foot ulcer that has been there for about 2 months. She developed some type of a blister that has since opened up and started to erode. Occasionally she will have some bleeding but she denies any purulent discharge. She is concerned as she says that she has a history of a MRSA infection to that foot in the past. 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 She has not taken anything for her symptoms. Presentation. She denies any fever. - ROS Review of Systems: Positive for left foot pain, ulcer Negative for fever, nausea and vomiting - Exam Vital Signs: Vital Signs 03/15/18 11:25 Temperature 98 F Pulse Rate 99 H Respiratory 18 Rate Blood Pressure 171/59 O2 Sat by Pulse 97 Oximetry Physical Exam: Patient does have a stage II left plantar foot ulcer, on the ball of the foot. The skin appears white and slightly macerated but there is no erythema or purulent drainage. Cap refill less than 2 seconds to the affected toes. MSE screening note: Focused history and physical exam performed. Due to findings the following was ordered: I have ordered a CBC, BMP and a foot x-ray. The patient will receive a dose of Bactrim. ED Disposition for MSE Condition: Stable
[2018-03-15 12:57] LABS: Basophils # (Auto) 0.1 K/mm3 (0.0-0.1); Basophils % (Auto) 1.1 % (0.0-1.8); Eosinophils # (Auto) 0.2 K/mm3 (0.0-0.4); Eosinophils % (Auto) 3.4 % (0.0-4.3); Hematocrit 37.3 % (30.3-42.9); Hemoglobin 12.6 gm/dl (10.1-14.3); Lymphocytes # (Auto) 1.6 K/mm3 (1.2-5.4); Lymphocytes % (Auto) 22.9 % (13.4-35.0); Mean Corpuscular HGB Conc 34 % (30-34); Mean Corpuscular Hemoglobin 30 pg (28-32); Mean Corpuscular Volume 87 fl (79-97); Monocytes # (Auto) 0.7 K/mm3 (0.0-0.8); Monocytes % (Auto) 10.1 % (0.0-7.3); Platelet Count 169 K/mm3 (140-440); Red Blood Count 4.28 M/mm3 (3.65-5.03); Red Cell Distribution Width 13.9 % (13.2-15.2)
[2018-03-15 13:12] LABS: Calcium 9.8 mg/dL (8.4-10.2)
--- NOTE | 2018-03-15 13:24 | Emergency Department Report ---
- General Chief Complaint: Wound/Laceration Stated Complaint: FOOT INFECTION Time Seen by Provider: 03/15/18 12:04 Source: patient, family Mode of arrival: Ambulatory Limitations: No Limitations - History of Present Illness Initial Comments: 62-year-old female presents to the emergency department with a left diabetic foot ulcer that has been there for about 2 months. She developed some type of a blister that has since opened up and started to erode. Occasionally she will have some bleeding but she denies any purulent discharge. She is concerned as she says that she has a history of a MRSA infection to that foot in the past. She does have a [employer] but says that she is unable to see them secondary to something related to her Medicare or SSI. She has not taken anything for her symptoms. Presentation. She denies any fever. Patient reports that her blood sugar has been elevated and her last hemoglobin A1c was 13.5. She does her primary care physician but reports she needs a referral to a new [employer]. Pain to left foot is swollen 2/ 10 at present but she said it can get to 10 out of 10 at times especially with walking. She reports that she has neuropathy and she has some numbness and tingling to her lower extremities. Patient said that she has education and outreach coordinator which she is trying to get back in connection with. She denies any fever or chills. She says she has been cleaning wound with Hibiclens, peroxide and try to keep it dry but now it is getting worse. Onset/Timin -: week(s) Extremity Location: Left: Foot (left foot pain and ulcer which is nonhealing) 1 - Patient reports that she has diabetic ulcer with pain to the bottom off her foot for 2 weeks that is not healing. Place: home Patient Tetanus UTD: Yes Context: other (nonhealing diabetic ulcer) Associated Symptoms: pain, loss of feeling/numbness, other (she reports drainage from site). denies: suspect foreign body present, unable to move injured part, weakness followed by dizziness, nausea/vomiting, fever Treatments Prior to Arrival: other (patient says she is peroxide and Hibiclens but is not getting any better.) - Related Data Home Medications Medication Instructions Recorded Confirmed Last Taken Escitalopram Oxalate [Lexapro] 20 mg PO QDAY MDD 20 mg 07/21/13 09/10/17 20 mg Furosemide [Lasix] 40 mg PO DAILY MDD 40 mg 07/21/13 09/10/17 09/08/17 40 mg Gabapentin [Neurontin] 800 mg PO TID MDD 800 mg 07/21/13 09/10/17 09/08/17 800 mg Levothyroxine [Synthroid] 112 mcg PO QAM MDD 112 mcg 07/21/13 09/10/17 09/08/17 112 mcg Lisinopril [Zestril TAB] 10 mg PO QDAY MDD 10 mg 07/21/13 09/10/17 09/08/17 10 mg Loratadine [Claritin] 10 mg PO DAILY MDD 10 mg 07/21/13 09/10/17 09/08/17 10 mg Metoprolol [Lopressor TAB] 25 mg PO QDAY MDD 25 07/21/13 09/10/17 09/08/17 25 mg metFORMIN [Glucophage] 500 mg PO DAILY MDD 500 mg 07/21/13 09/10/17 09/08/17 500 mg Latanoprost 0.005% 1 drop OU QHS MDD 1 drop 07/22/13 09/10/17 09/08/17 1 drop AtorvaSTATin [Lipitor] 40 mg PO QHS MDD 40 mg 09/10/17 09/10/17 09/08/17 40 mg Bupropion HCl [Bupropion HCl Sr] 150 mg PO DAILY MDD 150 mg 09/10/17 09/10/17 150 mg Isosorbide Mononitrate 30 mg PO DAILY MDD 30 mg 09/10/17 09/10/17 09/08/17 30 mg traMADol [Ultram 50 MG tab] 50 mg PO PRN PRN MDD 50 mg 09/10/17 09/10/17 50 mg Previous Rx's Medication Instructions Recorded Last Taken Type Albuterol Sulfate [Proventil Hfa] 6.7 gm IH Q4H #1 hfa.aer.ad 09/15/17 Unknown Rx Detemir (Nf) [Levemir (Nf)] 70 units SUB-Q BID units 09/15/17 Unknown Rx Inhaler, Assist Devices [Space 1 each MC PRN #1 spacer 09/15/17 Unknown Rx Chamber Plus] Insulin Regular, Human [HumuLIN R] 10 units SUB-Q ACHS units 09/15/17 Unknown Rx Levofloxacin [Levaquin TAB] 750 mg PO Q48HR #7 tablet 09/15/17 Unknown Rx methylPREDNISolone [Medrol Dose 4 mg PO DAILY #1 pack 09/15/17 Unknown Rx Alexnader] Sulfamethoxazole/Trimethoprim 1 each PO BID 10 Days #20 tablet 03/15/18 Unknown Rx [Bactrim DS TAB] traMADol [Ultram 50 MG tab] 50 mg PO Q6HR PRN #20 tablet 03/15/18 Unknown Rx Allergies Allergy/AdvReac Type Severity Reaction Status Date / Time imipramine HCl Allergy Unknown Verified 09/01/17 12:43 [From Tofranil] Penicillins Allergy Vomiting Verified 09/01/17 12:43 ED Review of Systems ROS: Stated complaint: FOOT INFECTION Other details as noted in HPI Constitutional: denies: chills, fever ENT: denies: ear pain, throat pain, congestion Respiratory: denies: cough, shortness of breath, SOB with exertion, SOB at rest , stridor, wheezing Cardiovascular: denies: chest pain, palpitations, edema, syncope, paroxysmal nocturnal dyspnea Gastrointestinal: denies: nausea, vomiting, diarrhea Musculoskeletal: arthralgia. denies: back pain, joint swelling Skin: other (foot ulcer, left). denies: rash, lesions Neurological: numbness, paresthesias. denies: headache, weakness, abnormal gait , vertigo Hematological/Lymphatic: easy bruising ED Past Medical Hx - Past Medical History Previous Medical History?: Yes Hx Hypertension: Yes Hx Congestive Heart Failure: Yes Hx Diabetes: Yes Hx GERD: Yes Hx Renal Disease: Yes Hx Arthritis: Yes (hands) Hx Seizures: Yes Hx Asthma: Yes Hx COPD: No Hx HIV: No Additional medical history: neuropathy MRSA in left foot wound previously. high cholesterol. fibromyalgia. glaucoma. hypothyroidsim - Surgical History Past Surgical History?: Yes Additional Surgical History: parotid gland removed,cataract bilateral,laproscopy - Family History Family history: diabetes, hypertension - Social History Smoking Status: Never Smoker Substance Use Type: None - Medications Home Medications: Home Medications Medication Instructions Recorded Confirmed Last Taken Type Escitalopram Oxalate [Lexapro] 20 mg PO QDAY MDD 20 mg 07/21/13 09/10/17 History 20 mg Furosemide [Lasix] 40 mg PO DAILY MDD 40 mg 07/21/13 09/10/17 09/08/17 History 40 mg Gabapentin [Neurontin] 800 mg PO TID MDD 800 mg 07/21/13 09/10/17 09/08/17 History 800 mg Levothyroxine [Synthroid] 112 mcg PO QAM MDD 112 mcg 07/21/13 09/10/17 09/08/17 History 112 mcg Lisinopril [Zestril TAB] 10 mg PO QDAY MDD 10 mg 07/21/13 09/10/17 09/08/17 History 10 mg Loratadine [Claritin] 10 mg PO DAILY MDD 10 mg 07/21/13 09/10/17 09/08/17 History 10 mg Metoprolol [Lopressor TAB] 25 mg PO QDAY MDD 25 07/21/13 09/10/17 09/08/17 History 25 mg metFORMIN [Glucophage] 500 mg PO DAILY MDD 500 mg 07/21/13 09/10/17 09/08/17 History 500 mg Latanoprost 0.005% 1 drop OU QHS MDD 1 drop 07/22/13 09/10/17 09/08/17 History 1 drop AtorvaSTATin [Lipitor] 40 mg PO QHS MDD 40 mg 09/10/17 09/10/17 09/08/17 History 40 mg Bupropion HCl [Bupropion HCl Sr] 150 mg PO DAILY MDD 150 mg 09/10/17 09/10/17 History 150 mg Isosorbide Mononitrate 30 mg PO DAILY MDD 30 mg 09/10/17 09/10/17 09/08/17 History 30 mg traMADol [Ultram 50 MG tab] 50 mg PO PRN PRN MDD 50 mg 09/10/17 09/10/17 History 50 mg Albuterol Sulfate [Proventil Hfa] 6.7 gm IH Q4H #1 hfa.aer.ad 09/15/17 Unknown Rx Detemir (Nf) [Levemir (Nf)] 70 units SUB-Q BID units 09/15/17 Unknown Rx Inhaler, Assist Devices [Space 1 each MC PRN #1 spacer 09/15/17 Unknown Rx Chamber Plus] Insulin Regular, Human [HumuLIN R] 10 units SUB-Q ACHS units 09/15/17 Unknown Rx Levofloxacin [Levaquin TAB] 750 mg PO Q48HR #7 tablet 09/15/17 Unknown Rx methylPREDNISolone [Medrol Dose 4 mg PO DAILY #1 pack 09/15/17 Unknown Rx Alexander] Sulfamethoxazole/Trimethoprim 1 each PO BID 10 Days #20 tablet 03/15/18 Unknown Rx [Bactrim DS TAB] traMADol [Ultram 50 MG tab] 50 mg PO Q6HR PRN #20 tablet 03/15/18 Unknown Rx ED Physical Exam - General Limitations: No Limitations General appearance: alert, in no apparent distress - Head Head exam: Present: atraumatic, normocephalic, normal inspection - Eye Eye exam: Present: normal appearance, PERRL, EOMI Pupils: Present: normal accommodation - ENT ENT exam: Present: normal exam, normal orophraynx, mucous membranes moist, TM's normal bilaterally, normal external ear exam - Neck Neck exam: Present: normal inspection, full ROM, other (no C-spine tenderness). Absent: tenderness, lymphadenopathy - Respiratory Respiratory exam: Present: normal lung sounds bilaterally. Absent: respiratory distress, chest wall tenderness - Cardiovascular Cardiovascular Exam: Present: regular rate, normal rhythm, normal heart sounds. Absent: systolic murmur, diastolic murmur - GI/Abdominal GI/Abdominal exam: Present: soft, normal bowel sounds. Absent: tenderness - Extremities Exam Extremities exam: Present: full ROM (full range of motion to all extremities. She does have pain with dorsiflexion of her left foot.), tenderness (tended to palpate left foot plantar aspect), normal capillary refill, other (No cce. + 2 pulses in all extremities, no neurovascular compromise except patient with nonhealing ulcer to left plantar aspect of left foot at first second and third metatarsal area.). Absent: normal inspection, pedal edema, joint swelling, calf tenderness - Neurological Exam Neurological exam: Present: alert, oriented X3, normal gait, reflexes normal. Absent: motor sensory deficit - Psychiatric Psychiatric exam: Present: normal affect, normal mood - Skin Skin exam: Present: warm, dry, erythema, other (foot ulcer. Left foot partial thickness ulcer from chronic diabetes and neuropathy. Stage I). Absent: rash - Expanded Skin Exam Expanded Type of lesion: Present: other (left plantar aspect of foot with superficial ulcer that involves a partial thickness of the skin but no involvement of the underlying tissues. Partial-thickness wound) Distribution of rash: LLE (left foot) Description of rash: Present: tenderness, erythematous, swelling, discharge ( minimal purulent drainage). Absent: fluctuant, indurated 1 - Patient with partial-thickness none EN ulcer to the plantar aspect of left foot. Tender to palpate with mild erythema. Small amount of puslike drainage. Patient with normal sensation and motor function. She is 2+ pulses in both feet. No signs of necrosis. ED Course Vital Signs 03/15/18 11:25 Temperature 98 F Pulse Rate 99 H Respiratory 18 Rate Blood Pressure 171/59 O2 Sat by Pulse 97 Oximetry - Reevaluation(s) Reevaluation #1: 03/15/18 16:52 Patient given Bactrim DS one tablet by mouth and will be referred to [employer] [employer] for and wound care center for management of nonhealing diabetic ulcer. ED Medical Decision Making - Lab Data Result diagrams: 03/15/18 12:39 03/15/18 12:39 Lab Results 03/15/18 03/15/18 Range/Units 12:39 12:39 WBC 6.9 (4.5-11.0) K/mm3 RBC 4.28 (3.65-5.03) M/mm3 Hgb 12.6 (10.1-14.3) gm/dl Hct 37.3 (30.3-42.9) % MCV 87 (79-97) fl MCH 30 (28-32) pg MCHC 34 (30-34) % RDW 13.9 (13.2-15.2) % Plt Count 169 (140-440) K/mm3 Lymph % (Auto) 22.9 (13.4-35.0) % Cottle % (Auto) 10.1 H (0.0-7.3) % Eos % (Auto) 3.4 (0.0-4.3) % Baso % (Auto) 1.1 (0.0-1.8) % Lymph # 1.6 (1.2-5.4) K/mm3 Cottle # 0.7 (0.0-0.8) K/mm3 Eos # 0.2 (0.0-0.4) K/mm3 Baso # 0.1 (0.0-0.1) K/mm3 Seg Neutrophils % 62.5 (40.0-70.0) % Seg Neutrophils # 4.3 (1.8-7.7) K/mm3 Sodium 137 (137-145) mmol/L Potassium 4.0 (3.6-5.0) mmol/L Chloride 91.2 L (98-107) mmol/L Carbon Dioxide 25 (22-30) mmol/L Anion Gap 25 mmol/L BUN 35 H (7-17) mg/dL Creatinine 1.6 H (0.7-1.2) mg/dL Estimated GFR 33 ml/min BUN/Creatinine Ratio 22 % Glucose 423 H (65-100) mg/dL Calcium 9.8 (8.4-10.2) mg/dL Patient was here on 11/28/2017 and she had elevated BUN and creatinine therefore she has a history of chronic renal failure. Her BUN and creatinine is elevated today also. - Radiology Data Radiology results: report reviewed Patient: MIRTA JIMENEZ MR#: [id number] : 1955 Acct:[id number] Age/Sex: 62 / F ADM Date: 03/15/18 Loc: ED Attending Dr: Ordering Physician: SUPRIYA OTT DO Date of Service: 03/15/18 Procedure(s): XR foot 3+V LT Accession Number(s): [id number] cc: SUPRIYA OTT DO Fluoro Time In Minutes: FINAL REPORT EXAM: XR FOOT 3+V LT HISTORY: foot pain, foot ulcer / wound COMPARISON: None. TECHNIQUE: Three views of the left foot FINDINGS: There is diffuse osteopenia. No focal loss of bone mineral density. There is no acute fracture or dislocation. The joint spaces are preserved. There is an ulcer over the ball of the foot. No radiopaque foreign body. IMPRESSION: No acute bony abnormality of the left foot. No radiographic evidence for osteomyelitis. Transcribed By: GERRI Dictated By: DONALD CASTAÑEDA MD Electronically Authenticated By: DONALD CASTAÑEDA MD Signed Date/Time: 03/15/181357 DD/ 57 TD/TT: 03/15/181357 - Medical Decision Making This is a 62-year-old female here reports that she has nonhealing wound to her left foot plantar aspect that she has been working on for 2 weeks without any positive results. She has been using peroxide and Hibiclens and she says is just getting worse and now is oozing right is fluid. Patient does have a primary care physician and also education and outreach coordinator but reports that she would like to get a referral for new [employer] for Medicare reason. She reports pain worse walk and in here to be evaluated. She was screened by Dr. Ott and lab was ordered. Patient was examined by myself. And her examination is normal except she has stage I diabetic ulcer to left plantar aspect of foot at first second and third metatarsal area. There are no bony involvement and no necrosis. She does have slight erythema with eschar tissue. Area around wound and within wound is tender to palpate. She has mild drainage without any odor. Patient able to ambulate without any difficulties. Bilateral lower extremity with +2 pedal pulses. No neurovascular compromise despite neuropathy. Capillary refill is less than 2 seconds. Patient had x-ray of her left foot which was dictated by radiologist' s and reviewed by myself and this showed no osteomyelitis or soft tissue swelling. No fracture or dislocation. Her laboratory reports with CBC stable, her chemistry is stable except she has elevated BUN and creatinine and this has been elevated in the past. I Discussed the patient the results of her x-ray and laboratory findings. Patient was here in November 2017 and her BUN and creatinine was the same as today. Patient reports that she has chronic kidney disease from her diabetes. Patient also told me that her last A1c was 13.5. I discussed with her that she is to get her blood sugar under control she is taking insulin because of her blood sugars not on her control her ulcer will not heal due to elevated blood sugar. She voiced understanding. I discussed with her that she needs to follow-up with her education and outreach coordinator and her primary care and [employer] which I will give her referral to in 2-3 days for follow- up. I will also refer her to perform care clinic for debridement of ulcer and management. Patient was given Bactrim and emergency room for infection. Diabetic foot ulcer, left foot-x-ray shows no osteomyelitis. No fracture or dislocation. Physical finding for infection. Patient was started on Bactrim and will be discharged home in Bactrim and Ultram. Wound care to ulcer done in hospital. Arthralgia left foot-she will be discharged home on Ultram for pain. Cellulitis left foot-started on Bactrim DS. Patient given a referral to Dr. Heath who is [employer] and told to follow- up with him in 2-3 days and also to wound care and [facility] to call tomorrow to schedule an appointment for visit. Patient discharged home in stable condition and she was given discharge information on acute wound care, medication, diagnosis, x-ray and lab findings. She is to follow-up with her primary care physician, education and outreach coordinator, [employer] and wound care center in 2-3 days. She voiced understanding and and discharged home with prescription for Bactrim and Ultram. Patient pain is stable at 2/10. Vital signs stable and she is afebrile. - Differential Diagnosis osteomyelitis, abscess versus cellulitis, nonhealing wound. Critical care attestation.: If time is entered above; I have spent that time in minutes in the direct care of this critically ill patient, excluding procedure time. ED Disposition Clinical Impression: Arthralgia of left foot, Cellulitis of left foot Diabetic foot ulcer associated with diabetes mellitus due to underlying condition Qualifiers: Diabetic foot ulcer location: unspecified part of foot Laterality: left Non- pressure ulcer stage: limited to breakdown of skin Qualified Code(s): E08.621 - Diabetes mellitus due to underlying condition with foot ulcer; L97.521 - Non- pressure chronic ulcer of other part of left foot limited to breakdown of skin Chronic kidney disease Qualifiers: Chronic kidney disease stage: unspecified stage Qualified Code(s): N18.9 - Chronic kidney disease, unspecified Disposition: DC-01 TO HOME OR SELFCARE Is pt being admited?: No Does the pt Need Aspirin: No Condition: Stable Instructions: Diabetes Mellitus Type 2 in Adults (ED), Arthralgia (ED), Acute Wound Care (ED), Diabetic Foot Ulcers (ED), Chronic Wound Care (ED), Cellulitis (ED), Diabetic Foot Care (ED) Additional Instructions: Please see discharge instruction in acute /chronic wound care Please see discharge instructions for referral to [employer] [employer] and wound care center. Also follow-up with your education and outreach coordinator and your primary care physician in 2 days. Keep affected area clean and dry Take Ultram for pain and please do not drive or operate heavy machinery while taking this medication Take Bactrim DS for infection for infection Return to the emergency room if, he developed fever, chills, increased pain and drainage from site, nausea and vomited, increase in redness and/or weakness. Use wet to dry dressing and to wound until you are seen by [facility]. Referrals: JACKSON WILLSON MD [Primary Care Provider] - 2-3 Days ARIADNE HEATH DPM [Staff Physician] - 3-5 Days follow-up with your, education and outreach coordinator in 2 days [Other] - 2-3 Days [facility] [Outside] - 03/17/18 Forms: Work/School Release Form(ED)
--- NOTE | 2018-03-15 14:04 | XRay Report ---
FINAL REPORT EXAM: XR FOOT 3+V LT HISTORY: foot pain, foot ulcer / wound COMPARISON: None. TECHNIQUE: Three views of the left foot FINDINGS: There is diffuse osteopenia. No focal loss of bone mineral density. There is no acute fracture or dislocation. The joint spaces are preserved. There is an ulcer over the ball of the foot. No radiopaque foreign body. IMPRESSION: No acute bony abnormality of the left foot. No radiographic evidence for osteomyelitis.
== END 2018-03-15 17:15 | disposition home or self-care (01) ==
LOC: ED 11:17
DX: E08.621 Diabetes mellitus due to underlying condition with foot ulcer (principal); L97.521 Non-pressure chronic ulcer of other part of left foot limited to breakdown of skin; N18.9 Chronic kidney disease, unspecified; L03.116 Cellulitis of left lower limb; I13.0 Hypertensive heart and chronic kidney disease with heart failure and stage 1 through stage 4 chronic kidney disease, or unspecified chronic kidney disease; I50.9 Heart failure, unspecified; E11.22 Type 2 diabetes mellitus with diabetic chronic kidney disease; E11.40 Type 2 diabetes mellitus with diabetic neuropathy, unspecified; K21.9 Gastro-esophageal reflux disease without esophagitis; E78.00 Pure hypercholesterolemia, unspecified; E03.9 Hypothyroidism, unspecified; Z79.4 Long term (current) use of insulin; M13.842 Other specified arthritis, left hand; M13.841 Other specified arthritis, right hand; J45.909 Unspecified asthma, uncomplicated; Z88.0 Allergy status to penicillin; Z88.8 Allergy status to other drugs, medicaments and biological substances; Z79.899 Other long term (current) drug therapy; Z98.890 Other specified postprocedural states
CPT/HCPCS: 36415; 80048; 85025

== ENCOUNTER 2018-03-26 09:55 | Outpatient (CLI) | payer MEDICAID ==
[2018-03-26] MEDS ORDERED: XYLOCAINE TOPICAL 4% TP ONE (10:45)
[2018-03-26] MEDS ORDERED: SODIUM CHLORIDE FLUSH SYRINGE 10 ML IV ONE (12:32)
[2018-03-26] MEDS ORDERED: SODIUM CHLORIDE FLUSH SYRINGE 10 ML IV PRN (15:23)
== END 2018-03-26 09:56 | disposition home or self-care (01) ==
LOC: WOUND 09:55
PROVIDERS: ATTEND Surgery
DX: E11.621 Type 2 diabetes mellitus with foot ulcer (principal); L97.522 Non-pressure chronic ulcer of other part of left foot with fat layer exposed; E11.40 Type 2 diabetes mellitus with diabetic neuropathy, unspecified; I11.0 Hypertensive heart disease with heart failure; I50.9 Heart failure, unspecified; Z98.49 Cataract extraction status, unspecified eye
CPT/HCPCS: 11042; G0463

== ENCOUNTER 2018-04-02 09:55 | Outpatient (CLI) | payer MEDICAID ==
[2018-04-02] MEDS ORDERED: XYLOCAINE TOPICAL 4% TP ONE ×2 (10:08→11:00)
== END 2018-04-02 09:56 | disposition home or self-care (01) ==
LOC: WOUND 09:55
PROVIDERS: ATTEND Surgery
DX: E11.621 Type 2 diabetes mellitus with foot ulcer (principal); L97.522 Non-pressure chronic ulcer of other part of left foot with fat layer exposed; E11.40 Type 2 diabetes mellitus with diabetic neuropathy, unspecified; I11.0 Hypertensive heart disease with heart failure; I50.9 Heart failure, unspecified; Z98.49 Cataract extraction status, unspecified eye

== ENCOUNTER 2018-04-08 12:33 | Outpatient (CLI) | payer MEDICAID ==
--- NOTE | 2018-04-08 16:00 | Vascular Lab Report ---
LOWER EXTREMITY ARTERIAL DUPLEX: REASON FOR EXAM: Chronic left foot ulcer. COMMENTS ON THE RIGHT: A limited study of the right lower extremity is done. Triphasic waveforms are seen distally. These findings are within normal limits. COMMENTS ON THE LEFT: Triphasic waveforms are seen proximally. Triphasic waveforms are seen distally. No significant velocity gradients are identified. No significant plaque is identified. Findings are consistent with normal perfusion. Findings are consistent with the ability to heal distal wounds. IMPRESSION: RIGHT: Essentially normal arterial flow. LEFT:Essentially normal arterial flow.
== END 2018-04-08 12:34 | disposition home or self-care (01) ==
LOC: VAS 12:33
PROVIDERS: ATTEND Surgery
DX: E11.621 Type 2 diabetes mellitus with foot ulcer (principal); E08.40 Diabetes mellitus due to underlying condition with diabetic neuropathy, unspecified; L97.522 Non-pressure chronic ulcer of other part of left foot with fat layer exposed; E11.65 Type 2 diabetes mellitus with hyperglycemia; E78.5 Hyperlipidemia, unspecified; I11.0 Hypertensive heart disease with heart failure; E03.9 Hypothyroidism, unspecified; E78.00 Pure hypercholesterolemia, unspecified; K21.9 Gastro-esophageal reflux disease without esophagitis; M19.90 Unspecified osteoarthritis, unspecified site

== ENCOUNTER 2018-04-09 09:39 | Outpatient (CLI) | payer MEDICAID | END 2018-04-09 09:40 | disposition home or self-care (01) | LOC: WOUND 09:39 | PROVIDERS: ATTEND Surgery | DX: E11.621 Type 2 diabetes mellitus with foot ulcer (principal); L97.522 Non-pressure chronic ulcer of other part of left foot with fat layer exposed; E11.40 Type 2 diabetes mellitus with diabetic neuropathy, unspecified; I11.0 Hypertensive heart disease with heart failure; I50.9 Heart failure, unspecified; Z98.49 Cataract extraction status, unspecified eye ==